=== PATIENT | female | born 1975 | race American Indian/Alaskan Native ===

== ENCOUNTER 2020-04-01 09:39 | Emergency (ER) | payer MEDICAID ==
[2020-04-01 09:45] VITALS: BP 122/70
--- NOTE | 2020-04-01 09:48 | Emergency Department Report ---
Blank Doc - Documentation Documentation: 44-year-old female that presents with right leg pain and swelling. Denies any trauma or injuries. 1- This initial assessment/diagnostic orders/clinical plan/ treatment(s) is/are subject to change based on pt's health status, clinical progression and re- assessment by fellow clinical providers in the ED. Further treatment and workup at subsequent clinical provers discretion. Patient/guardians urged not to elope from ED as their condition may be serious if not clinically assessed and managed. 2-Doppler ultrasound rule out DVT
[2020-04-01] MEDS ORDERED: ENOXAPARIN 80 MG/0.8 ML INJ SUB-Q ONE (11:58)
--- NOTE | 2020-04-01 12:17 | Vascular Lab Report ---
DUPLEX DOPPLER LOWER EXTREMITY VEINS, RIGHT INDICATION: right leg pain and swelling. TECHNIQUE: Duplex doppler imaging was performed through the veins of the right lower extremity using venous compression and other maneuvers. COMPARISON: No relevant prior imaging study available. FINDINGS: Right Common femoral vein: Positive. Right Superficial femoral vein: Positive. Right Popliteal vein: Positive. Right Calf veins: Positive. Additional findings: None.. IMPRESSION: Positive for acute occlusive DVT throughout the right lower extremity. NOAH Quezada was notified of these findings by the technologist at 1140 hours Signer Name: Andre Olivier Jr, MD Signed: 04/01/2020 12:12 PM Workstation Name: [id number]
[2020-04-01 12:28] LABS: Hematocrit 32.2 % (30.3-42.9); Hemoglobin 10.7 gm/dl (10.1-14.3); Mean Corpuscular HGB Conc 33 % (30-34); Mean Corpuscular Volume 90 fl (79-97); Red Blood Count 3.58 M/mm3 (3.65-5.03); Red Cell Distribution Width 13.4 % (13.2-15.2)
[2020-04-01 12:41] LABS: INR 1.03 (0.87-1.13); Partial Thromboplastin Time 27.9 Sec. (24.2-36.6)
[2020-04-01 12:55] LABS: Alanine Aminotransferase 17 units/L (7-56); Albumin 4.3 g/dL (3.9-5); BUN/Creatinine Ratio 13; Blood Urea Nitrogen 12 mg/dL (7-17); Calcium 9.4 mg/dL (8.4-10.2); Hemolysis Index 21
--- NOTE | 2020-04-01 13:32 | Emergency Department Report ---
ED General Adult HPI - General Chief complaint: Extremity Injury, Lower Stated complaint: RLE SWELLING Time Seen by Provider: 04/01/20 09:47 Source: patient Mode of arrival: Wheelchair Limitations: No Limitations - History of Present Illness Initial comments: This is a 44-year-old female nontoxic, well nourished in appearance, no acute signs of distress presents to the ED with c/o of right leg pain and swelling times several days. Patient denies any trauma or injuries. Patient denies taking control. Patient denies any numbness, tingling, fever, chills, nausea, vomiting, headache or stiff neck. Patient denies any drug allergies. -: days(s) Location: lower extremity Radiation: non-radiation Severity scale (0 -10): 8 Quality: aching Consistency: constant Improves with: none Worsens with: none Associated Symptoms: denies other symptoms. denies: confusion, chest pain, cough, diaphoresis, fever/chills, headaches, loss of appetite, malaise, nausea/vomiting, rash, seizure, shortness of breath, syncope, weakness - Related Data Previous Rx's Medication Instructions Recorded Last Taken Type Apixaban [Eliquis starter pack] 5 mg PO DAILY 30 Days #37 tab 04/01/20 Unknown Rx ED Review of Systems ROS: Stated complaint: RLE SWELLING Other details as noted in HPI Constitutional: denies: chills, fever Eyes: denies: eye pain, eye discharge, vision change ENT: denies: ear pain, throat pain Respiratory: denies: cough, shortness of breath, wheezing Cardiovascular: denies: chest pain, palpitations Endocrine: no symptoms reported Gastrointestinal: denies: abdominal pain, nausea, diarrhea Genitourinary: denies: urgency, dysuria, discharge Musculoskeletal: denies: back pain, joint swelling, arthralgia Skin: denies: rash, lesions Neurological: denies: headache, weakness, paresthesias Psychiatric: denies: anxiety, depression Hematological/Lymphatic: denies: easy bleeding, easy bruising ED Past Medical Hx - Past Medical History Hx of Cancer: Yes (CERVICAL) - Surgical History Past Surgical History?: No - Social History Smoking Status: Never Smoker Substance Use Type: None - Medications Home Medications: Home Medications Medication Instructions Recorded Confirmed Last Taken Type Apixaban [Eliquis starter pack] 5 mg PO DAILY 30 Days #37 tab 07/06/20 Unknown Rx ED Physical Exam - General Limitations: No Limitations General appearance: alert, in no apparent distress - Head Head exam: Present: atraumatic, normocephalic - Neck Neck exam: Present: normal inspection, full ROM. Absent: tenderness, men ingismus, lymphadenopathy - Respiratory Respiratory exam: Present: normal lung sounds bilaterally. Absent: respiratory distress, wheezes, rales, rhonchi, stridor, chest wall tenderness, accessory muscle use, decreased breath sounds, prolonged expiratory - Cardiovascular Cardiovascular Exam: Present: regular rate, normal rhythm, normal heart sounds. Absent: irregular rhythm, systolic murmur, diastolic murmur, rubs, gallop - Extremities Exam Extremities exam: Present: normal inspection, full ROM, tenderness, normal capillary refill. Absent: joint swelling - Expanded Lower Extremity Exam Right Hip exam: Present: normal inspection, full ROM. Absent: tenderness, swelling Upper Leg exam: Present: normal inspection, full ROM. Absent: tenderness, swelling Knee exam: Present: normal inspection, full ROM. Absent: tenderness, swelling Lower Leg exam: Present: normal inspection, full ROM, tenderness, swelling, erythema, Irasema's sign. Absent: abrasion, laceration, ecchymosis, deformity, crepidus, dislocation, palpable cord Ankle exam: Present: normal inspection, full ROM. Absent: tenderness, swelling Foot/Toe exam: Present: normal inspection, full ROM. Absent: tenderness, swelling Neuro vascular tendon exam: Present: no vascular compromise Gait: Positive: observed and normal - Back Exam Back exam: Present: normal inspection, full ROM. Absent: tenderness, CVA tenderness (R), CVA tenderness (L), muscle spasm, paraspinal tenderness, vertebral tenderness, rash noted - Neurological Exam Neurological exam: Present: alert, oriented X3, normal gait - Psychiatric Psychiatric exam: Present: normal affect, normal mood - Skin Skin exam: Present: warm, dry, intact, normal color. Absent: rash ED Course Vital Signs 04/01/20 09:44 Temperature 98.8 F Pulse Rate 111 H Respiratory 20 Rate Blood Pressure 122/70 O2 Sat by Pulse 100 Oximetry - Reevaluation(s) Reevaluation #1: 04/01/20 13:32 Patient is speaking in full sentences with no signs of distress noted. - Consultations Consultation #1: 04/01/20 13:32 Patient has been consulted with John Bales about patient history, physical exam, and labs and agrees to ED plan of care and discharge plan of care. ED Medical Decision Making - Lab Data Result diagrams: 04/01/20 11:49 04/01/20 11:49 Lab Results 04/01/20 04/01/20 04/01/20 Range/Units 11:49 11:49 11:49 RBC 3.58 L (3.65-5.03) M/mm3 Hgb 10.7 (10.1-14.3) gm/dl Hct 32.2 (30.3-42.9) % MCV 90 (79-97) fl MCH 30 (28-32) pg MCHC 33 (30-34) % RDW 13.4 (13.2-15.2) % Seg Neutrophils % Dive Superintendent PT 13.3 (12.2-14.9) Sec. INR 1.03 (0.87-1.13) APTT 27.9 (24.2-36.6) Sec. Sodium 137 (137-145) mmol/L Potassium 4.4 (3.6-5.0) mmol/L Chloride 98.0 (98-107) mmol/L Carbon Dioxide 23 (22-30) mmol/L Anion Gap 20 mmol/L BUN 12 (7-17) mg/dL Creatinine 0.9 (0.7-1.2) mg/dL Estimated GFR > 60 ml/min BUN/Creatinine Ratio 13 % Glucose 106 H (65-100) mg/dL Calcium 9.4 (8.4-10.2) mg/dL Total Bilirubin 0.40 (0.1-1.2) mg/dL AST 16 (5-40) units/L ALT 17 (7-56) units/L Alkaline Phosphatase 59 (35-129) units/L Total Protein 7.1 (6.3-8.2) g/dL Albumin 4.3 (3.9-5) g/dL Albumin/Globulin Ratio 1.5 % - Radiology Data Referring Physician: ROOSEVELT BENTON Patient Name: KRISTOFER ANNE Date of : 1975 Sex: Female Report Date: 2020-04-01 Report Status: Finalized [address] [place] [address] Vascular Lab Report Signed Patient: KRISTOFER ANNE MR#: [id number] : 1975 Acct:[id number] Age/Sex: 44 / F ADM Date: 04/01/20 Loc: ED Attending Dr: Ordering Physician: ROOSEVELT BENTON NP Date of Service: 04/01/20 Procedure(s): VL venous duplex LE RT Accession Number(s): [id number] cc: ROOSEVELT BENTON NP DUPLEX DOPPLER LOWER EXTREMITY VEINS, RIGHT INDICATION: right leg pain and swelling. TECHNIQUE: Duplex doppler imaging was performed through the veins of the right lower extremity using venous compression and other maneuvers. COMPARISON: No relevant prior imaging study available. FINDINGS: Right Common femoral vein: Positive. Right Superficial femoral vein: Positive. Right Popliteal vein: Positive. Right Calf veins: Positive. Additional findings: None.. IMPRESSION: Positive for acute occlusive DVT throughout the right lower extremity. NOAH Quezada was notified of these findings by the technologist at 1140 hours Signer Name: Andre Olivier Jr, MD Signed: 04/01/2020 12:12 PM Workstation Name: [id number] - Medical Decision Making 44-year-old female that presents with DVT. Patient is stable and was examined by me. Patient received Lovenox subcu injection in the ER. Patient also received Eliquis pamphlet that provides 30 days of medication. Patient was educated on blood thinners and things to avoid. In prescription under comments it was documented for pharmacist to provide 10 mg twice daily for 7 days followed by 5 mg twice daily. patient was instructed to follow-up with a primary care doctor in 3-5 days or if symptoms worsen and continue return to emergency room as soon as possible. At time of discharge, the patient does not seem toxic or ill in appearance. No acute signs of distress noted. Patient agrees to discharge treatment plan of care. No further questions noted by the patient. Critical care attestation.: If time is entered above; I have spent that time in minutes in the direct care of this critically ill patient, excluding procedure time. ED Disposition Clinical Impression: Right leg DVT Qualifiers: Affected thrombotic vein of extremity: unspecified vein of extremity Chronicity: acute Qualified Code(s): I82.401 - Acute embolism and thrombosis of unspecified deep veins of right lower extremity Disposition: DC-01 TO HOME OR SELFCARE Is pt being admited?: No Does the pt Need Aspirin: No Condition: Stable Instructions: Deep Venous Thrombosis (ED), Apixaban (By mouth) Additional Instructions: Follow-up with a primary care doctor in 3-5 days or if symptoms worsen and continue return to emergency room as soon as possible. Prescriptions: Apixaban [Eliquis starter pack] 5 mg PO DAILY 30 Days #37 tab Referrals: MICHOACANO PERKINS NP [Primary Care Provider] - 3-5 Days PRIMARY CARE, [Referring] - 3-5 Days ERIKA MIRANDA MD [Staff Physician] - 3-5 Days Forms: Work/School Release Form(ED)
[2020-04-01 13:58] LABS: Anisocytosis Few; Band Neutrophils # (Manual) 0.1 K/mm3; Basophils % (Manual) 0 % (0.0-1.8); Hypochromasia 1+; Macrocytosis Few; Platelet Estimate Consistent w Auto; Total Cells Counted 100
[2020-04-01 13:59] LABS: Platelet Count 74 K/mm3 (140-440)
== END 2020-04-01 13:47 | disposition home or self-care (01) ==
LOC: ED 09:39
DX: I82.4Z1 Acute embolism and thrombosis of unspecified deep veins of right distal lower extremity (principal); Z85.89 Personal history of malignant neoplasm of other organs and systems; Z79.899 Other long term (current) drug therapy
CPT/HCPCS: 36415; 80053; 85007; 85025; 85610; 85730; 93971; 96372; 99284; J1650

== ENCOUNTER 2020-10-04 08:36 | Outpatient (CLI) | payer MEDICAID ==
[2020-10-04 10:03] LABS: Blood Urea Nitrogen 9 mg/dL (7-17)
--- NOTE | 2020-10-04 11:51 | Cat Scan Report ---
CTA PELVIS INDICATION / CLINICAL INFORMATION: Vein compression, May Thurner syndrome. TECHNIQUE: Axial CT images were obtained through the abdomen and pelvis after after injection of 100 cc IV contr ast. 3 plane MIP / 3D reconstructions were produced. All CT scans at this location are performed usin g CT dose reduction for ALARA by means of automated exposure control. COMPARISON: None available. FINDINGS: CTA and CTV images were obtained although the CT the images are limited with only partial opacificati on of the venous structures. The visualized distal aorta, common iliac arteries, internal iliac arteries and external iliac arteri es are widely patent with no evidence for atherosclerotic disease, stenosis or aneurysm. The CTV images suggest perhaps mild compression of the left common iliac vein which is best demonstra mari on image 3, series 8. Otherwise the venous structures are unremarkable. No thrombosis. Mildly pro minent subcutaneous veins are noted in the anterior pelvic wall. The uterus, adnexa, bladder and visualized bowel loops in the pelvis are unremarkable. Normal appendi x. No free fluid, fluid collection, inflammatory changes or adenopathy. 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 Signer Name: Andre Olivier Jr, MD Signed: 10/04/2020 11:47 AM Workstation Name: [id number]
== END 2020-10-04 08:37 | disposition home or self-care (01) ==
LOC: CT 08:36
PROVIDERS: ATTEND Radiology Vascular & Interventional Radiology
DX: I87.1 Compression of vein (principal)
CPT/HCPCS: 36415; 72191; 82565; 84520; J1642; Q9967

== ENCOUNTER 2020-11-08 10:50 | Day surgery (SDC) | payer MEDICAID ==
[2020-11-08] MEDS ORDERED: SODIUM CHLORIDE 0.9% 1000 ML 1,000 ML IV SCH (11:30)
[2020-11-08 11:42] LABS: Basophils % (Auto) 0.4 % (0.0-1.8); Eosinophils # (Auto) 0.1 K/mm3 (0.0-0.4); Eosinophils % (Auto) 1.5 % (0.0-4.3); Hematocrit 32.9 % (30.3-42.9); Hemoglobin 11.1 gm/dl (10.1-14.3); Lymphocytes # (Auto) 0.8 K/mm3 (1.2-5.4); Lymphocytes % (Auto) 21.2 % (13.4-35.0); Mean Corpuscular HGB Conc 34 % (30-34); Mean Corpuscular Volume 90 fl (79-97); Monocytes # (Auto) 0.4 K/mm3 (0.0-0.8); Monocytes % (Auto) 10.7 % (0.0-7.3); Platelet Count 266 K/mm3 (140-440); Red Blood Count 3.64 M/mm3 (3.65-5.03)
[2020-11-08 11:54] LABS: BUN/Creatinine Ratio 9; Blood Urea Nitrogen 8 mg/dL (7-17); Calcium 9.1 mg/dL (8.4-10.2); Hemolysis Index 4
[2020-11-08 12:01] LABS: INR 1.05 (0.87-1.13); Partial Thromboplastin Time 32.5 Sec. (24.2-36.6)
[2020-11-08] MEDS ORDERED: HEPARIN 10,000 UNITS/10 ML VIAL ONE (12:42)
[2020-11-08] MEDS ORDERED: HEPARIN/NS 5000 UNIT/500ML 1,000 ML IR ONE (12:42)
--- NOTE | 2020-11-08 12:59 | Anesthesia Day of Surgery ---
Anesthesia Day of Surgery - Day of Surgery Patient Examined: Yes Patient H&P Reviewed: Yes Patient is NPO: Yes
--- NOTE | 2020-11-08 13:00 | Anesthesia Consultation ---
Anesthesia Consult and Med Hx Date of service: 11/08/20 - Airway Anesthetic Teeth Evaluation: Chipped, Caps ROM Head & Neck: Adequate Mental/Hyoid Distance: Adequate Mallampati Class: Class II Intubation Access Assessment: Good - Pre-Operative Health Status ASA Pre-Surgery Classification: ASA3 Proposed Anesthetic Plan: General (MAC; GA if needed), MAC - Pulmonary Hx Smoking: No Hx Asthma: Yes (as a child) Hx Respiratory Symptoms: Yes (Decreased activity from leg swelling/pain) - Cardiovascular System Hx Hypertension: No Hx Peripheral Vascular Disease: Yes - Central Nervous System Hx Psychiatric Problems: Yes - Endocrine Hx Renal Disease: No Hx Liver Disease: No Hx Non-Insulin Dependent Diabetes: No Hx Thyroid Disease: No - Hematic Hx Sickle Cell Disease: No - Other Systems Hx Cancer: Yes Hx Obesity: Yes
[2020-11-08] MEDS ORDERED: ceFAZolin/Water 2 GM/20 ML 2 GM/20 ML SYRINGE IV ONE (13:01)
[2020-11-08] MEDS: LIDOCAINE (2%) 20 MG/1 ML VIAL 20 ML MDV INFILTRATI ONE ×3 (13:15→13:45)
--- NOTE | 2020-11-08 14:43 | Short Stay Summary ---
Short Stay Documentation Date of service: 11/08/20 Narrative H&P: Previous DVT with chronic swelling in right leg with pain - History Principal diagnosis: Chronic DVT H&P: obtained from office Past Medical History: arthritis, cancer, DVT (Thrombectomy. IVC filter) - Allergies and Medications Current Medications: Allergies No Known Allergies Allergy (Verified 11/08/20 11:06) Home Medications Medication Instructions Recorded Confirmed Last Taken Type Apixaban [Eliquis starter pack] 5 mg PO BID 11/08/20 11/08/20 11/07/20 History 5 mg Active Medications Sodium Chloride (Nacl 0.9% 1000 Ml) 1,000 mls @ 42 mls/hr IV DIRECT ALTAGRACIA - Physical exam General appearance: no acute distress HEENT: Atraumatic, PERRLA Lungs: Clear to auscultation Breasts: deferred Heart: Regular rate, Normal S1, Normal S2 Gastrointestinal: normal Female Genitourinary: deferred Rectal Exam: deferred Extremities: abnormal (Diffuse swelling of right leg) Neurological: Normal gait, Normal speech, Sensation intact - Brief post op/procedure progress note Date of procedure: 11/08/20 Pre-op diagnosis: Right leg swelling. Chronic DVT. 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 Surgeon: KELVIN DIANA Estimated blood loss: minimal Pathology: none Condition: stable - Disposition Condition at discharge: Good Disposition: DC-01 TO HOME OR SELFCARE Short Stay Discharge Plan Follow up with: MICHOACANO PERKINS NP [Primary Care Provider] - 7 Days
[2020-11-08 16:33] VITALS: BP 128/81
--- NOTE | 2020-11-08 17:02 | Post Anesthesia Evaluation ---
- Post Anesthesia Evaluation Patient Participated: Yes Airway Patent: Yes Stable Respiratory Function: Yes Nausea/Vomiting: No Temp > 96.8F: Yes Pain Manageable: Yes Adequeate Hydration: Yes Anesthesia Complications: No Block Receding Appropriately: Not Applicable Patient on Ventilator: No
--- NOTE | 2020-11-15 07:34 | Operative Report ---
PROCEDURE: Right lower extremity venogram. INDICATION: Right leg swelling and pain, chronic right leg DVT. PHYSICIAN: Dr. Nance. ANESTHESIA: MAC anesthesia provided by anesthesia service. CONTRAST: 50 mL of Visipaque. PROCEDURE DETAILS: The patient has had previous inferior vena cava filter placement, also has a history of chronic DVT bilaterally. Had previous CT scan and ultrasound, which demonstrated possible occlusion of the right iliac vein. Following informed written consent, the patient was placed supine on the angiographic table and the right groin was prepped and draped in the usual sterile fashion. Using ultrasound guidance, the right common femoral vein was accessed using micropuncture access set. A 0.018 inch guidewire was advanced into the external iliac vein and a 5-Macanese transitional dilator was inserted. Contrast was injected, which demonstrated an occluded common femoral and external iliac vein. Multiple attempts were made to cross the area of occlusion with a nultiple wires however, this was unsuccessful. Therefore, the catheter and guidewire were removed. The right neck was then prepped and draped in the usual sterile fashion. Lidocaine was used for local anesthetic. Ultrasound guidance was utilized to access the right internal jugular vein. A micropuncture access set was used to access the right internal jugular vein and a 5-Macanese vascular sheath placed. A Glidewire with a Kumpe catheter was advanced into the right common iliac and proximal external iliac veins and contrast was injected using the digital subtraction angiography to evaluate the pelvic veins and portions of the lower extremity veins. Attempts were made with a Glidewire and a vertebral catheter to cross the area of occlusion; however, this was unsuccessful as well. At this time, the procedure was terminated and the catheter and guidewire were removed and the sheath removed, and manual compression applied until adequate hemostasis achieved. The patient tolerated the procedure well and was discharged following adequate recovery time. FINDINGS: There is evidence for chronic occlusion of the right common femoral vein as well as the external iliac vein. There is extensive collateralization present via the profunda femoral vein as well as the internal iliac vein with cross filling to the contralateral side with pelvic collaterals as well as an enlarged internal iliac vein, which is continuous into the common iliac vein. The inferior vena cava is widely patent. There is no evidence of thrombus present in the inferior vena cava or the common iliac vein. The inferior vena cava filter is in adequate position. There is also evidence for occlusion of the proximal femoral vein. IMPRESSION: 1. 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 2. Extensive collateralization via the profunda femoral vein as well as the internal iliac vein with cross pelvic collaterals as well. 3. No evidence for acute deep venous thrombosis. JOB# [id number] SKS/BREANNE LAM
== END 2020-11-08 16:55 | disposition home or self-care (01) ==
LOC: CATHLABREC 10:50
PROVIDERS: ATTEND Radiology Vascular & Interventional Radiology
DX: I82.523 Chronic embolism and thrombosis of iliac vein, bilateral (principal); J45.909 Unspecified asthma, uncomplicated; M19.90 Unspecified osteoarthritis, unspecified site; F32.9 Major depressive disorder, single episode, unspecified; E66.9 Obesity, unspecified; Z68.39 Body mass index [BMI] 39.0-39.9, adult; Z79.899 Other long term (current) drug therapy; Z85.41 Personal history of malignant neoplasm of cervix uteri; Z98.890 Other specified postprocedural states
CPT/HCPCS: 36415; 75820; 76937; 80048; 85025; 85610; 85730; C1769; J0690; J1644; J7030; Q9967

== ENCOUNTER 2021-04-07 16:50 | Inpatient (IN) | payer MEDICAID ==
[2021-04-07] MEDS ORDERED: ACETAMINOPHEN 500 MG TAB PO ONE ×2 (17:52→22:03)
--- NOTE | 2021-04-07 17:53 | Event Note ---
ED Screening Note Date of service: 04/07/21 Time: 17:50 ED Screening Note: 45-year-old female patient with history of right lower extremity DVT and stage II cervical cancer (in remission) presents to the emergency department with complaints of progressively worsening dyspnea for 1 week. Patient underwent outpatient CT of her chest, which showed PE vs. tumor thrombus, pericardial thickening, and pleural effusion. Her physician sent her to the emergency department for further evaluation and management. Patient was previously on Eliquis for her DVT. She was taken off of the Eliquis 4 days ago. Additionally, patient was recently off of her Eliquis for 6 days due to Port-A-Cath removal. Febrile and tachycardic in triage. Sepsis orders initiated. General: Awake, appropriately interactive, no acute distress. Neck: Supple. Full range of motion intact. Cardiovascular: Normal peripheral perfusion. Pulmonary: Dyspnea on exertion. Patient is speaking normally without use of accessory muscles. Skin: No apparent rashes or lesions. Neurological: No facial asymmetry. Speech is clear. Follows commands. Patient is alert and oriented. Musculoskeletal: Moves all four extremities spontaneously with normal range of motion. Psych: Cooperative. Appropriate mood and affect. Of note, patient brought CT images on a disk as well as dictation report from radiologist. I have greeted and performed a focused rapid initial assessment of this patient. A comprehensive ED assessment and evaluation of the patient, analysis of all test results, and completion of the medical decision-making process will be conducted by additional ED providers. This initial assessment/diagnostic orders/clinical plan/treatment(s) is/are subject to change based on patients health status, clinical progression and re-assessment. Further treatment and workup at subsequent clinical provider's discretion. Patient/guardian urged not to elope from the ED as their condition may be serious if not clinically assessed and managed.
[2021-04-07 18:09] LABS: Basophils % (Auto) 0.4 % (0.0-1.8); Eosinophils % (Auto) 0.5 % (0.0-4.3); Hemoglobin 10.7 gm/dl (10.1-14.3); Lymphocytes # (Auto) 0.7 K/mm3 (1.2-5.4); Lymphocytes % (Auto) 7.6 % (13.4-35.0); Mean Corpuscular HGB Conc 33 % (30-34); Mean Corpuscular Volume 89 fl (79-97); Monocytes # (Auto) 0.8 K/mm3 (0.0-0.8); Monocytes % (Auto) 8.4 % (0.0-7.3); Platelet Count 383 K/mm3 (140-440); Red Blood Count 3.61 M/mm3 (3.65-5.03); Red Cell Distribution Width 15.5 % (13.2-15.2)
[2021-04-07 18:23] LABS: INR 1.19 (0.87-1.13)
[2021-04-07 18:24] LABS: Partial Thromboplastin Time 28.8 Sec. (24.2-36.6)
[2021-04-07 19:30] LABS: Alanine Aminotransferase 150 units/L (7-56); BUN/Creatinine Ratio 9; Blood Urea Nitrogen 8 mg/dL (7-17); Calcium 9.9 mg/dL (8.4-10.2); Hemolysis Index 0
[2021-04-07] MEDS ORDERED: AZITHROMYCIN/NS 500 MG/250 ML 500 MG/250 ML BAG IV ONE (21:46)
[2021-04-07] MEDS ORDERED: cefTRIAXone/NS 2 GM/100 ML 2 GM/100 ML BAG IV ONE (21:46)
[2021-04-07] MEDS ORDERED: SODIUM CHLORIDE 0.9% 1000 ML IV SOLN IV ONE (21:46)
[2021-04-07] MEDS ORDERED: ACETAMINOPHEN 325 MG TAB PO ONE (22:00)
[2021-04-07] MEDS ORDERED: ACETAMINOPHEN 500 MG TAB ONE (22:03)
--- NOTE | 2021-04-07 22:03 | Emergency Department Report ---
ED Shortness of Breath HPI - General Chief Complaint: Dyspnea/Respdistress Stated Complaint: DIFF BREATHING Time Seen by Provider: 04/07/21 21:32 Source: patient Mode of arrival: Ambulatory Limitations: No Limitations - History of Present Illness Initial Comments: Patient is a 45-year-old F [place] female with past medical history of cervical cancer who is been in remission since July 2020 who is presenting with shortness of breath and right-sided chest pain. Patient states that she was on Eliquis secondary to a DVT and she had in the past while battling cancer. She was taken off of the Eliquis on March 26 because she had a Chemo-Port removed. She restarted the medication but then she had become ill and had some episodes where she was coughing up blood and she was restopped from taking the Eliquis 4 days ago. Patient states that on March 30 which is approximately 8 days ago she started having some pain in the right side of her neck and right chest. Patient was having chills as well with cough. Saw her primary care physician 2 days later on the had a chest x-ray which showed a possible right-sided middle upper lobe pneumonia. Patient started on a Z-David which the patient did not start until April 04. Since that time the patient is continued to have pleuritic chest pain and cough. She has had off-and-on fevers as well. She denies nausea vomiting diarrhea. Patient earlier today had a CT of the chest with contrast which showed abnormal appearance of the right hilum with multiple enlarged lymph nodes in intrapulmonary artery lower pulmonary vein low-density areas in the postcontrast study suspicious for thrombus versus tumor thrombus with opacification to the lateral segment of the right middle lobe in the superior segment of the right lower lobe with loculated pleural effusion present. Some mild anterior pericar dial thickening may be related to the same etiology. This was not a CTA and is not delineating whether there is a pulmonary embolus. - Related Data Home Medications Medication Instructions Recorded Confirmed Last Taken Apixaban [Eliquis starter pack] 5 mg PO BID 11/08/20 11/08/20 11/07/20 5 mg Allergies Allergy/AdvReac Type Severity Reaction Status Date / Time No Known Allergies Allergy Verified 11/08/20 11:06 ED Review of Systems ROS: Stated complaint: DIFF BREATHING Other details as noted in HPI Comment: All other systems reviewed and negative ED Past Medical Hx - Past Medical History Hx Hypertension: No Hx Liver Disease: No Hx Renal Disease: No Hx Sickle Cell Disease: No Hx Arthritis: Yes Hx Asthma: Yes (as a child) Hx HIV: No - Surgical History Past Surgical History?: No - Social History Smoking Status: Never Smoker - Medications Home Medications: Home Medications Medication Instructions Recorded Confirmed Last Taken Type Apixaban [Eliquis starter pack] 5 mg PO BID 11/08/20 11/08/20 11/07/20 History 5 mg ED Physical Exam - General Limitations: No Limitations General appearance: alert, in no apparent distress - Head Head exam: Present: atraumatic, normocephalic - Eye Eye exam: Present: normal appearance, PERRL, EOMI - ENT ENT exam: Present: mucous membranes moist - Neck Neck exam: Present: normal inspection - Respiratory Respiratory exam: Present: respiratory distress, rhonchi. Absent: normal lung sounds bilaterally, wheezes, rales - Cardiovascular Cardiovascular Exam: Present: normal rhythm, tachycardia. Absent: systolic murmur, diastolic murmur, rubs, gallop - GI/Abdominal GI/Abdominal exam: Present: soft, normal bowel sounds. Absent: distended, tenderness, guarding, rebound - Extremities Exam Extremities exam: Present: normal inspection - Back Exam Back exam: Present: normal inspection - Neurological Exam Neurological exam: Present: alert, oriented X3 - Psychiatric Psychiatric exam: Present: normal affect, normal mood - Skin Skin exam: Present: warm, dry, intact, normal color. Absent: rash ED Course Vital Signs 04/07/21 04/07/21 04/07/21 17:35 21:35 22:25 Temperature 100.8 F H 100.3 F H Pulse Rate 120 H 125 H Respiratory 20 25 H 18 Rate Blood Pressure 127/81 Blood Pressure 143/88 [Left] O2 Sat by Pulse 99 97 Oximetry 04/07/21 22:30 Temperature Pulse Rate Respiratory 18 Rate Blood Pressure Blood Pressure [Left] O2 Sat by Pulse Oximetry ED Medical Decision Making - Lab Data Result diagrams: 04/07/21 17:50 04/07/21 17:50 Lab Results 04/07/21 04/07/21 04/07/21 Range/Units 17:50 17:50 17:50 WBC 9.4 (4.5-11.0) K/mm3 RBC 3.61 L (3.65-5.03) M/mm3 Hgb 10.7 (10.1-14.3) gm/dl Hct 32.0 (30.3-42.9) % MCV 89 (79-97) fl MCH 30 (28-32) pg MCHC 33 (30-34) % RDW 15.5 H (13.2-15.2) % Plt Count 383 (140-440) K/mm3 Lymph % (Auto) 7.6 L (13.4-35.0) % [place] % (Auto) 8.4 H (0.0-7.3) % Eos % (Auto) 0.5 (0.0-4.3) % Baso % (Auto) 0.4 (0.0-1.8) % Lymph # (Auto) 0.7 L (1.2-5.4) K/mm3 [place] # (Auto) 0.8 (0.0-0.8) K/mm3 Eos # (Auto) 0.0 (0.0-0.4) K/mm3 Baso # (Auto) 0.0 (0.0-0.1) K/mm3 Seg Neutrophils % 83.1 H (40.0-70.0) % Seg Neutrophils # 7.8 H (1.8-7.7) K/mm3 PT 15.6 H (12.2-14.9) Sec. INR 1.19 H (0.87-1.13) APTT 28.8 (24.2-36.6) Sec. Sodium 137 (137-145) mmol/L Potassium 3.9 (3.6-5.0) mmol/L Chloride 97.3 L (98-107) mmol/L Carbon Dioxide 27 (22-30) mmol/L Anion Gap 17 mmol/L BUN 8 (7-17) mg/dL Creatinine 0.9 (0.6-1.2) mg/dL Estimated GFR > 60 ml/min BUN/Creatinine Ratio 9 % Glucose 116 H (65-100) mg/dL Lactic Acid (0.7-2.0) mmol/L Calcium 9.9 (8.4-10.2) mg/dL Total Bilirubin 0.80 (0.1-1.2) mg/dL AST 108 H (5-40) units/L ALT 150 H (7-56) units/L Alkaline Phosphatase 240 H (35-129) units/L Troponin T < 0.010 (0.00-0.029) ng/mL NT-Pro-B Natriuret Pep 21.49 (0-450) pg/mL Total Protein 8.8 H (6.3-8.2) g/dL Albumin 4.0 (3.9-5) g/dL Albumin/Globulin Ratio 0.8 % 04/07/21 Range/Units 17:50 WBC (4.5-11.0) K/mm3 RBC (3.65-5.03) M/mm3 Hgb (10.1-14.3) gm/dl Hct (30.3-42.9) % MCV (79-97) fl MCH (28-32) pg MCHC (30-34) % RDW (13.2-15.2) % Plt Count (140-440) K/mm3 Lymph % (Auto) (13.4-35.0) % [place] % (Auto) (0.0-7.3) % Eos % (Auto) (0.0-4.3) % Baso % (Auto) (0.0-1.8) % Lymph # (Auto) (1.2-5.4) K/mm3 [place] # (Auto) (0.0-0.8) K/mm3 Eos # (Auto) (0.0-0.4) K/mm3 Baso # (Auto) (0.0-0.1) K/mm3 Seg Neutrophils % (40.0-70.0) % Seg Neutrophils # (1.8-7.7) K/mm3 PT (12.2-14.9) Sec. INR (0.87-1.13) APTT (24.2-36.6) Sec. Sodium (137-145) mmol/L Potassium (3.6-5.0) mmol/L Chloride (98-107) mmol/L Carbon Dioxide (22-30) mmol/L Anion Gap mmol/L BUN (7-17) mg/dL Creatinine (0.6-1.2) mg/dL Estimated GFR ml/min BUN/Creatinine Ratio % Glucose (65-100) mg/dL Lactic Acid 0.70 (0.7-2.0) mmol/L Calcium (8.4-10.2) mg/dL Total Bilirubin (0.1-1.2) mg/dL AST (5-40) units/L ALT (7-56) units/L Alkaline Phosphatase (35-129) units/L Troponin T (0.00-0.029) ng/mL NT-Pro-B Natriuret Pep (0-450) pg/mL Total Protein (6.3-8.2) g/dL Albumin (3.9-5) g/dL Albumin/Globulin Ratio % - EKG Data -: EKG Interpreted by Nd EKG shows normal: sinus rhythm, axis, intervals, QRS complexes, ST-T waves Rate: tachycardia (112) - EKG Data 04/07/21 22:45 2240, sinus tachycardia - Radiology Data [facility] [address] [id number] Cat Scan Report Signed Patient: KRISTOFER ANNE MR#: [id number] : 1975 Acct:[id number] Age/Sex: 45 / F ADM Date: 04/07/21 Loc: ED Attending Dr: Ordering Physician: MARLA SIMS MD Date of Service: 04/07/21 Procedure(s): CT angio chest Accession Number(s): [id number] cc: MARLA SIMS MD CTA CHEST WITH CONTRAST INDICATION / CLINICAL INFORMATION: Dyspnea x 1 week, pain with breathing, Hx of a DVT.. TECHNIQUE: Axial CT images were obtained through the chest after injection of IV contrast. 3 plane MIP and/or 3D reconstructions were produced. All CT scans at this location are performed using CT dose reduction for ALARA by means of automated exposure control. COMPARISON: None available. FINDINGS: PULMONARY ARTERIES: Complete filling defect of the segmental and subsegmental pulmonary arteries of the right middle lobe and right lower lobe. Clot extends to the distal right main pulmonary artery. There is no saddle embolus. No discrete filling defects seen within the pulmonary arteries of the right upper lobe or the left lung. THORACIC AORTA: No significant abnormality. HEART: No significant abnormality. No evidence of right heart strain. RB/LV ratio is within normal limits. ADENOPATHY: No significant adenopathy. LUNGS/PLEURA: Small right pleural effusion with dense airspace consolidation peripherally within the right lower lobe, with consolidation in the right middle lobe. There is lingular and left lower lobe volume loss. Lungs otherwise clear. No pneumothorax. ADDITIONAL FINDINGS: None. UPPER ABDOMEN: Focal area of hyperenhancement within the right kidney may reflect artifact or focal perfusion abnormality. No acute abnormality. SKELETAL STRUCTURES: No significant osseous abnormality. IMPRESSION: 1. Acute occlusive pulmonary embolus of the right lower lobe with involvement of the segmental right middle lobe pulmonary arteries. Embolus extends to the distal right main pulmonary artery. No discrete pulmonary emboli seen in the right upper lobe or left lung. 2. Small right pleural effusion with dense airspace consolidation within the right lower lobe, less so within the right middle lobe, compatible with pulmonary infarct. 3. No evidence of right heart strain. 4. Other incidental findings, as above. CRITICAL RESULT: Time of Discovery (PERSONAL SHOPPER/CDT): 04/07/2021 at 9:50 PM Time of Communication (PERSONAL SHOPPER/CDT): 04/07/2021 at 9:52 PM Licensed Practitioner Receiving Report: Dr. Sims Read-Back Performed: Yes. - Medical Decision Making Patient is a 45-year-old F [place] female who is presenting with right-sided chest pain. CTA today shows an extensive pulmonary embolus to the right lower lobe and right middle lobe with some right lower lobe infarct. Patient was given medication for fever and pain control. Started on heparin drip and she will be admitted to the hospitalist service. Critical Care Time: Yes (40) Critical care attestation.: If time is entered above; I have spent that time in minutes in the direct care of this critically ill patient, excluding procedure time. ED Disposition Clinical Impression: Pulmonary embolism, Pulmonary infarct Disposition: OP ADMIT IP TO THIS HOSP Is pt being admited?: Yes Does the pt Need Aspirin: No Condition: Stable Time of Disposition: 23:15
[2021-04-07] MEDS ORDERED: HEPARIN 10,000 UNITS/10 ML VIAL IV PRN (22:51)
[2021-04-07] MEDS ORDERED: HEPARIN 10,000 UNITS/10 ML VIAL IV ONE ×2 (22:51)
--- NOTE | 2021-04-07 22:57 | Cat Scan Report ---
CTA CHEST WITH CONTRAST INDICATION / CLINICAL INFORMATION: Dyspnea x 1 week, pain with breathing, Hx of a DVT.. TECHNIQUE: Axial CT images were obtained through the chest after injection of IV contrast. 3 plane VT P and/or 3D reconstructions were produced. All CT scans at this location are performed using CT dose reduction for ALARA by means of automated exposure control. COMPARISON: None available. FINDINGS: PULMONARY ARTERIES: Complete filling defect of the segmental and subsegmental pulmonary arteries of t he right middle lobe and right lower lobe. Clot extends to the distal right main pulmonary artery. Th ere is no saddle embolus. No discrete filling defects seen within the pulmonary arteries of the right upper lobe or the left lung. THORACIC AORTA: No significant abnormality. HEART: No significant abnormality. No evidence of right heart strain. RB/LV ratio is within normal li mits. ADENOPATHY: No significant adenopathy. LUNGS/PLEURA: Small right pleural effusion with dense airspace consolidation peripherally within the right lower lobe, with consolidation in the right middle lobe. There is lingular and left lower lobe volume loss. Lungs otherwise clear. No pneumothorax. ADDITIONAL FINDINGS: None. UPPER ABDOMEN: Focal area of hyperenhancement within the right kidney may reflect artifact or focal p erfusion abnormality. No acute abnormality. SKELETAL STRUCTURES: No significant osseous abnormality. IMPRESSION: 1. Acute occlusive pulmonary embolus of the right lower lobe with involvement of the segmental right middle lobe pulmonary arteries. Embolus extends to the distal right main pulmonary artery. No discret e pulmonary emboli seen in the right upper lobe or left lung. 2. Small right pleural effusion with dense airspace consolidation within the right lower lobe, less s o within the right middle lobe, compatible with pulmonary infarct. 3. No evidence of right heart strain. 4. Other incidental findings, as above. CRITICAL RESULT: Time of Discovery (ELDER COUNSELOR/CDT): 04/07/2021 at 9:50 PM Time of Communication (ELDER COUNSELOR/CDT): 04/07/2021 at 9:52 PM Licensed Practitioner Receiving Report: Dr. Sims Read-Back Performed: Yes. Signer Name: Jackson Ivey MD Signed: 04/07/2021 10:53 PM Workstation Name: [id number]
[2021-04-07] MEDS ORDERED: ONDANSETRON 4 MG/2 ML INJ IV PRN (23:45)
[2021-04-07] MEDS ORDERED: ALBUTEROL 2.5 MG/3 ML NEBU IH PRN (23:45)
[2021-04-07 23:49] LABS: Hematocrit 27.8 % (30.3-42.9); Hemoglobin 9.3 gm/dl (10.1-14.3)
--- NOTE | 2021-04-07 23:53 | History and Physical Report ---
History of Present Illness Date of examination: 04/07/21 Date of admission: 04/07/21 23:16 Chief complaint: Shortness of breath Chest pain Respiratory distress History of present illness: 45-year-old female with past medical history of cervical cancer and right leg DVT was brought to the emergency room because of shortness of breath and right- sided chest pain. Patient states that she was on Eliquis secondary to a DVT and she had in the past while battling cancer. She was taken off of the Eliquis on March 26 because she had a Chemo-Port removed. She restarted the medication but then she had become ill and had some episodes where she was coughing up blood an d she was restopped from taking the Eliquis 4 days ago. Patient states that on March 30 which is approximately 8 days ago she started having some pain in the right side of her neck and right chest. Patient was having chills as well with cough. Saw her primary care physician 2 days later on the sixth had a chest x- ray which showed a possible right-sided middle upper lobe pneumonia. Patient started on a Z-David which the patient did not start until April 04. Since that time the patient is continued to have pleuritic chest pain and cough. She has had off-and-on fevers as well. She denies nausea vomiting diarrhea. Patient earlier today had a CT of the chest with contrast which showed abnormal appearance of the right hilum with multiple enlarged lymph nodes in intrapulmonary artery lower pulmonary vein low-density areas in the postcontrast study suspicious for thrombus versus tumor thrombus with opacification to the lateral segment of the right middle lobe in the superior segment of the right lower lobe with loculated pleural effusion present. Some mild anterior pericardial thickening may be related to the same etiology. This was not a CTA and is not delineating whether there is a pulmonary embolus. In the emergency room patient has a CTA which shows patient has pulmonary embolism. We are going to admit the patient I put the patient on heparin drip Past History Past Medical History: arthritis, DVT (Cervical cancer in remission) Medications and Allergies Allergies Allergy/AdvReac Type Severity Reaction Status Date / Time No Known Allergies Allergy Verified 11/08/20 11:06 Home Medications Medication Instructions Recorded Confirmed Last Taken Type Apixaban [Eliquis starter pack] 5 mg PO BID 11/08/20 11/08/20 11/07/20 History 5 mg Active Meds: Active Medications Heparin Sodium (Porcine) (Heparin 10,000 Units/10 Ml Vial) 3,900 unit 40 unit/kg (3900 unit) IV Q6H PRN PRN Reason: Anti-Xa Assay < 0.1 units/ml Review of Systems Cardiovascular: chest pain, shortness of breath, dyspnea on exertion Respiratory: shortness of breath, dyspnea on exertion Exam - Constitutional Vitals: Temp Pulse Resp BP Pulse Ox 100.3 F H 108 H 15 141/60 100 04/07/21 21:35 04/07/21 23:16 04/07/21 23:16 04/07/21 23:16 04/07/21 23:16 General appearance: Present: no acute distress, well-nourished - EENT Eyes: Present: PERRL ENT: hearing intact, clear oral mucosa - Neck Neck: Present: supple, normal ROM - Respiratory Respiratory effort: normal Respiratory: bilateral: diminished - Cardiovascular Heart Sounds: Present: S1 & S2. Absent: rub, click - Extremities Extremities: pulses symmetrical, No edema Peripheral Pulses: within normal limits - Abdominal General gastrointestinal: Present: soft, non-tender, non-distended, normal bowel sounds Female genitourinary: Present: normal - Integumentary Integumentary: Present: clear, warm, dry - Musculoskeletal Musculoskeletal: gait normal, strength equal bilaterally - Psychiatric Psychiatric: appropriate mood/affect, intact judgment & insight - Neurologic Neurologic: CNII-XII intact, moves all extremities HEART Score - HEART Score Troponin: Troponin T < 0.010 ng/mL (0.00-0.029) 04/07/21 17:50 Results - Labs CBC & Chem 7: 04/07/21 23:27 04/07/21 17:50 Labs: Laboratory Last Values WBC 9.4 K/mm3 (4.5-11.0) 04/07/21 17:50 RBC 3.61 M/mm3 (3.65-5.03) L 04/07/21 17:50 Hgb 10.7 gm/dl (10.1-14.3) 04/07/21 17:50 Hct 32.0 % (30.3-42.9) 04/07/21 17:50 MCV 89 fl (79-97) 04/07/21 17:50 MCH 30 pg (28-32) 04/07/21 17:50 MCHC 33 % (30-34) 04/07/21 17:50 RDW 15.5 % (13.2-15.2) H 04/07/21 17:50 Plt Count 383 K/mm3 (140-440) 04/07/21 17:50 Lymph % (Auto) 7.6 % (13.4-35.0) L 04/07/21 17:50 [place] % (Auto) 8.4 % (0.0-7.3) H 04/07/21 17:50 Eos % (Auto) 0.5 % (0.0-4.3) 04/07/21 17:50 Baso % (Auto) 0.4 % (0.0-1.8) 04/07/21 17:50 Lymph # (Auto) 0.7 K/mm3 (1.2-5.4) L 04/07/21 17:50 [place] # (Auto) 0.8 K/mm3 (0.0-0.8) 04/07/21 17:50 Eos # (Auto) 0.0 K/mm3 (0.0-0.4) 04/07/21 17:50 Baso # (Auto) 0.0 K/mm3 (0.0-0.1) 04/07/21 17:50 Seg Neutrophils % 83.1 % (40.0-70.0) H 04/07/21 17:50 Seg Neutrophils # 7.8 K/mm3 (1.8-7.7) H 04/07/21 17:50 PT 15.6 Sec. (12.2-14.9) H 04/07/21 17:50 INR 1.19 (0.87-1.13) H 04/07/21 17:50 APTT 28.8 Sec. (24.2-36.6) 04/07/21 17:50 Sodium 137 mmol/L (137-145) 04/07/21 17:50 Potassium 3.9 mmol/L (3.6-5.0) 04/07/21 17:50 Chloride 97.3 mmol/L (98-107) L 04/07/21 17:50 Carbon Dioxide 27 mmol/L (22-30) 04/07/21 17:50 Anion Gap 17 mmol/L 04/07/21 17:50 BUN 8 mg/dL (7-17) 04/07/21 17:50 Creatinine 0.9 mg/dL (0.6-1.2) 04/07/21 17:50 Estimated GFR > 60 ml/min 04/07/21 17:50 BUN/Creatinine Ratio 9 % 04/07/21 17:50 Glucose 116 mg/dL (65-100) H 04/07/21 17:50 Lactic Acid 0.70 mmol/L (0.7-2.0) 04/07/21 17:50 Calcium 9.9 mg/dL (8.4-10.2) 04/07/21 17:50 Total Bilirubin 0.80 mg/dL (0.1-1.2) 04/07/21 17:50 AST 108 units/L (5-40) H 04/07/21 17:50 ALT 150 units/L (7-56) H 04/07/21 17:50 Alkaline Phosphatase 240 units/L (35-129) H 04/07/21 17:50 Troponin T < 0.010 ng/mL (0.00-0.029) 04/07/21 17:50 NT-Pro-B Natriuret Pep 21.49 pg/mL (0-450) 04/07/21 17:50 Total Protein 8.8 g/dL (6.3-8.2) H 04/07/21 17:50 Albumin 4.0 g/dL (3.9-5) 04/07/21 17:50 Albumin/Globulin Ratio 0.8 % 04/07/21 17:50 Microbiology: Microbiology 04/07/21 17:50 Peripheral/Venous Blood Culture - Preliminary Culture in Progress 04/07/21 18:08 Peripheral/Venous Blood Culture - Preliminary Culture in Progress - Imaging and Cardiology CT scan - chest: report reviewed Assessment and Plan VTE prophylaxis?: Chemical Plan of care discussed with patient/family: Yes - Patient Problems (1) Pulmonary embolism Current Visit: Yes Status: Acute Plan to address problem: Admit the patient to the medical telemetry. Oxygen via nasal catheter per minute DuoNeb by nebulizer every 4 hours. Albuterol via nebulizer every 4 hours as needed. Heparin drip as per protocol. Echocardiogram. Will restart the Eliquis in the morning (2) Pulmonary infarct Current Visit: Yes Status: Acute Plan to address problem: Oxygen via nasal catheter per minute DuoNeb by nebulizer every 4 hours. Albuterol via nebulizer every 4 hours as needed. Heparin drip as per protocol. Echocardiogram. Will restart the Eliquis in the morning. If needed will consult vascular surgeon in the morning (3) Cervical cancer Current Visit: No Status: Acute Plan to address problem: Continue home medication. Outpatient follow-up with oncology (4) Deep vein thrombosis (DVT) of iliac vein of right lower extremity Current Visit: No Status: Acute Plan to address problem: Oxygen via nasal catheter per minute DuoNeb by nebulizer every 4 hours. Albuterol via nebulizer every 4 hours as needed. Heparin drip as per protocol. Echocardiogram. Will restart the Eliquis in the morning (5) Arthritis Current Visit: Yes Status: Acute Plan to address problem: Stable. Tylenol 650 mg p.o. every 6 hours as needed. Morphine 2 mg IV every 4 hours as needed (6) Full code status Current Visit: Yes Status: Acute Plan to address problem: Heparin drip for DVT prophylaxis. Pepcid 20 mg p.o. twice daily for GI prophylaxis. Patient is a full code
[2021-04-07] MEDS ORDERED: HEPARIN/ 0.45% NACL DRIP 25,000 UNIT/500 ML BAG ONE (23:54)
[2021-04-07 23:59] LABS: INR 1.24 (0.87-1.13)
[2021-04-08] LABS: Partial Thromboplastin Time 35.8 Sec. (24.2-36.6)
[2021-04-08] MEDS: HEPARIN/ 0.45% NACL DRIP 25,000 UNIT/500 ML BAG IV SCH ×2 (00:15→16:48)
[2021-04-08] MEDS ORDERED: HEPARIN/ 0.45% NACL DRIP 25,000 UNIT/500 ML BAG IV SCH (01:00)
[2021-04-08] MEDS: IPRATROPIUM/ALBUTEROL SULFATE 3 ML AMPUL.NEB IH SCH ×4 (01:20→20:08)
[2021-04-08] MEDS: MORPHINE 2 MG/1 ML INJ IV PRN ×4 (02:32→20:24)
[2021-04-08] MEDS: ACETAMINOPHEN 325 MG TAB PO PRN ×2 (06:09→20:23)
[2021-04-08 06:57] LABS: Basophils # (Auto) 0.1 K/mm3 (0.0-0.1); Basophils % (Auto) 0.7 % (0.0-1.8); Eosinophils # (Auto) 0.1 K/mm3 (0.0-0.4); Eosinophils % (Auto) 0.8 % (0.0-4.3); Hematocrit 28.1 % (30.3-42.9); Hemoglobin 9.6 gm/dl (10.1-14.3); Lymphocytes # (Auto) 0.9 K/mm3 (1.2-5.4); Lymphocytes % (Auto) 8.8 % (13.4-35.0); Mean Corpuscular HGB Conc 34 % (30-34); Mean Corpuscular Volume 86 fl (79-97); Monocytes # (Auto) 0.6 K/mm3 (0.0-0.8); Monocytes % (Auto) 6.2 % (0.0-7.3); Platelet Count 342 K/mm3 (140-440); Red Blood Count 3.27 M/mm3 (3.65-5.03); Red Cell Distribution Width 15.7 % (13.2-15.2)
[2021-04-08 07:02] LABS: BUN/Creatinine Ratio 8; Blood Urea Nitrogen 6 mg/dL (7-17); Calcium 9.2 mg/dL (8.4-10.2); Hemolysis Index 1
[2021-04-08] MEDS: FAMOTIDINE 20 MG TAB PO SCH ×2 (09:25→21:18)
--- NOTE | 2021-04-08 10:55 | Electrocardiograph Report ---
[facility] Test Date: 2021-04-07 Test Time: 22:35:59 Pat Name: KRISTOFER ANNE Department: Room: A462 1 Gender: F Methods Time Analyst: CINTHIA : 1975 Requested By: NATHAN MEDINA Order Number: [id number] Reading MD: Konstantin Ruby Measurements Intervals [place] Rate: 112 P: 49 SD: 153 QRS: 41 QRSD: 76 T: 48 QT: 315 QTc: 432 Interpretive Statements Sinus tachycardia No previous ECG available for comparison Electronically Signed On 04-08-2021 10:55:15 EDT by Konstantin Ruby
--- NOTE | 2021-04-08 14:41 | Progress Note ---
Assessment and Plan --Right middle lobe Pulmonary embolism Oxygen via nasal catheter per minute DuoNeb by nebulizer every 4 hours. Albuterol via nebulizer every 4 hours as needed. Heparin drip as per protocol. Ordered Echocardiogram. consult heamatology -- Pulmonary infarct Oxygen via nasal catheter per minute DuoNeb by nebulizer every 4 hours. Albuterol via nebulizer every 4 hours as needed. consult pulmonary -- h/o Cervical cancer Outpatient follow-up with oncology -- h/o Deep vein thrombosis (DVT) of iliac vein of right lower extremity patient was taking eliquis at home but recently discontinued for hemoptysis -- Arthritis Stable. Tylenol 650 mg p.o. every 6 hours as needed. Morphine 2 mg IV every 4 hours as needed --Morbid obesity, diet and exercise recommendation when clinically more stable -- Full code status --Heparin drip for DVT prophylaxis. Pepcid 20 mg p.o. twice daily for GI prophylaxis. Daily clinical course: 04/08/21: cont heparin drip, Pt with h/o GI bleed will consult heam and pulmonary for AC recommendation Subjective Date of service: 04/08/21 Interval history: Patient seen and examined. Medical records and medication list reviewed. No acute event overnight noted by the RN. Patient continued to complains of pleuritic chest pain and difficulty breathing. Patient is tolerating diet. Discussed plan of care at bedside with patient. Objective - Exam Narrative Exam: GENERAL: well-developed and well-nourished lying on bed appeared to be in no discomfort. HEENT: Normocephalic. Atraumatic. No conjunctival congestion or icterus. Patient has moist mucous membranes. NECK: Supple. Trachea midline. CHEST/LUNGS: Clear to auscultated bilaterally, breathing nonlabored. No wheezes crackles or rhonchi. HEART/CARDIOVASCULAR: Regular in rate and rhythm. S1 and S2 positive. ABDOMEN: Abdomen is soft, nontender. Patient has normal bowel sounds. SKIN: There is no rash. Warm and dry. NEURO: No focal motor deficit. Follows command. MUSCULOSKELETAL: No joint effusion or tenderness. EXTRIMITY: No edema, no cyanosis or clubbing. PSYCH: Cooperative. - Constitutional Vitals: Vital Signs - 12hr 04/08/21 04/08/21 04/08/21 04:34 07:12 07:23 Temperature 100.3 F H 99.6 F Pulse Rate 107 H 103 H Pulse Rate [ 80 Posterior Bilateral Lower Lobe] Respiratory 18 19 Rate Respiratory 16 Rate [Posterior Bilateral Lower Lobe] Blood Pressure 113/75 118/61 O2 Sat by Pulse 100 95 Oximetry 04/08/21 11:35 Temperature 99.5 F Pulse Rate 96 H Pulse Rate [ Posterior Bilateral Lower Lobe] Respiratory 19 Rate Respiratory Rate [Posterior Bilateral Lower Lobe] Blood Pressure 128/79 O2 Sat by Pulse 100 Oximetry - Labs CBC & Chem 7: 04/09/21 13:59 04/09/21 13:59 Labs: Abnormal lab results 04/07/21 04/07/21 04/07/21 Range/Units 17:50 17:50 17:50 RBC 3.61 L (3.65-5.03) M/mm3 Hgb (10.1-14.3) gm/dl Hct (30.3-42.9) % RDW 15.5 H (13.2-15.2) % Lymph % (Auto) 7.6 L (13.4-35.0) % [place] % (Auto) 8.4 H (0.0-7.3) % Lymph # (Auto) 0.7 L (1.2-5.4) K/mm3 Seg Neutrophils % 83.1 H (40.0-70.0) % Seg Neutrophils # 7.8 H (1.8-7.7) K/mm3 PT 15.6 H (12.2-14.9) Sec. INR 1.19 H (0.87-1.13) Chloride 97.3 L (98-107) mmol/L BUN (7-17) mg/dL Glucose 116 H (65-100) mg/dL AST 108 H (5-40) units/L ALT 150 H (7-56) units/L Alkaline Phosphatase 240 H (35-129) units/L Total Protein 8.8 H (6.3-8.2) g/dL 04/07/21 04/07/21 04/08/21 Range/Units 23:27 23:27 06:40 RBC 3.27 L (3.65-5.03) M/mm3 Hgb 9.3 L 9.6 L (10.1-14.3) gm/dl Hct 27.8 L 28.1 L (30.3-42.9) % RDW 15.7 H (13.2-15.2) % Lymph % (Auto) 8.8 L (13.4-35.0) % [place] % (Auto) (0.0-7.3) % Lymph # (Auto) 0.9 L (1.2-5.4) K/mm3 Seg Neutrophils % 83.5 H (40.0-70.0) % Seg Neutrophils # 8.7 H (1.8-7.7) K/mm3 PT 16.1 H (12.2-14.9) Sec. INR 1.24 H (0.87-1.13) Chloride (98-107) mmol/L BUN (7-17) mg/dL Glucose (65-100) mg/dL AST (5-40) units/L ALT (7-56) units/L Alkaline Phosphatase (35-129) units/L Total Protein (6.3-8.2) g/dL 04/08/21 Range/Units 06:40 RBC (3.65-5.03) M/mm3 Hgb (10.1-14.3) gm/dl Hct (30.3-42.9) % RDW (13.2-15.2) % Lymph % (Auto) (13.4-35.0) % [place] % (Auto) (0.0-7.3) % Lymph # (Auto) (1.2-5.4) K/mm3 Seg Neutrophils % (40.0-70.0) % Seg Neutrophils # (1.8-7.7) K/mm3 PT (12.2-14.9) Sec. INR (0.87-1.13) Chloride (98-107) mmol/L BUN 6 L (7-17) mg/dL Glucose 132 H (65-100) mg/dL AST (5-40) units/L ALT (7-56) units/L Alkaline Phosphatase (35-129) units/L Total Protein (6.3-8.2) g/dL HEART Score - HEART Score Troponin: Troponin T < 0.010 ng/mL (0.00-0.029) 04/07/21 17:50
[2021-04-09] MEDS: IPRATROPIUM/ALBUTEROL SULFATE 3 ML AMPUL.NEB IH SCH ×4 (03:01→20:37)
[2021-04-09] MEDS: MORPHINE 2 MG/1 ML INJ IV PRN ×2 (03:20→10:13)
[2021-04-09] MEDS: ACETAMINOPHEN 325 MG TAB PO PRN ×2 (03:33→12:36)
[2021-04-09 05:50] LABS: Basophils % (Auto) 0.4 % (0.0-1.8); Eosinophils # (Auto) 0.1 K/mm3 (0.0-0.4); Eosinophils % (Auto) 0.5 % (0.0-4.3); Lymphocytes % (Auto) 8.9 % (13.4-35.0); Mean Corpuscular HGB Conc 35 % (30-34); Mean Corpuscular Volume 87 fl (79-97); Monocytes # (Auto) 0.8 K/mm3 (0.0-0.8); Monocytes % (Auto) 7.1 % (0.0-7.3); Platelet Count 339 K/mm3 (140-440); Red Blood Count 2.98 M/mm3 (3.65-5.03); Red Cell Distribution Width 15.3 % (13.2-15.2)
[2021-04-09 07:59] LABS: BUN/Creatinine Ratio 6; Blood Urea Nitrogen 5 mg/dL (7-17); Calcium 9.3 mg/dL (8.4-10.2); Hemolysis Index 0
[2021-04-09] MEDS: FAMOTIDINE 20 MG TAB PO SCH ×2 (10:13→22:36)
[2021-04-09] MEDS: HEPARIN/ 0.45% NACL DRIP 25,000 UNIT/500 ML BAG IV SCH (10:16)
--- NOTE | 2021-04-09 11:07 | Hem/Onc Consultation ---
History of Present Illness - Reason for Consult Consult date: 04/08/21 - History of Present Illness History Of Present Illness: HEME consult for PE, and clotting requested by Dr. Dudley Televisit by [facility] [id number] Dx: Pulmonary Embolism 45yo AA woman with PMH of cervical ca and right leg DVT, followed by Dr. Giles Diagnosed with cervical ca January 2020 with port placement and chemotherapy treatment, now in remission Pt was also started on Eliquis secondary to DVT in 2019 Eliquis was stopped on 03/22/2021 for port removal and resumed 04/01/2021. Pt states on 03/30/2021 she started having pain from the right side of her neck down her ribs with some associated SOB Admitted to [facility] 04/08/2021 and found to have PE --> IV heparin, steroids PMH: 2 miscarriages locally advanced cervical cancer as above FH: Mom with bilateral PE Sister with complicated bilateral DVTs, EXAM: NAD overweight woman DATA reviewed below IMPRESSION: presumed clotting tendency, h/o DVT and now with PE Clotting due to pmh of cervical ca and family history of clotting tendency r/o sickle trait or APLS chest pain likely due to pulm infarction elevated liver enzymes, cause unknown mild anemia with mixed iron defic and anemia of chronic inflammation RECOMMEND: IV heparin for now --> change back to Eliquis at discharge and f/u with Oncologist Dr. Giles Steroid pulse for pleuritic chest pain labs to include Hgb electrophoresis and cardiolipin ab IV iron infusion Laboratory Last Values WBC 10.8 K/mm3 (4.5-11.0) 04/09/21 13:59 Hgb 9.2 gm/dl (10.1-14.3) L 04/09/21 13:59 Hct 28.1 % (30.3-42.9) L 04/09/21 13:59 MCV 87 fl (79-97) 04/09/21 13:59 Plt Count 404 K/mm3 (140-440) 04/09/21 13:59 Percent Retic 1.43 % (0.78-2.58) 04/09/21 13:59 PT 16.8 Sec. (12.2-14.9) H 04/09/21 13:59 INR 1.31 (0.87-1.13) H 04/09/21 13:59 APTT 99.2 Sec. (24.2-36.6) H* 04/09/21 13:59 D-Dimer > 77313 ng/mlDDU (0-234) H 04/09/21 05:13 Heparin Anti-Xa Level 0.69 U.I./ml (0.3-0.7) 04/09/21 13:59 Creatinine 0.8 mg/dL (0.6-1.2) 04/09/21 13:59 Iron 18 ug/dL (37-170) L 04/09/21 05:13 TIBC 173 mcg/dL (250-450) L 04/09/21 05:13 Ferritin 1250.0 ng/mL (10.0-200.0) H 04/09/21 05:13 Total Bilirubin 0.80 mg/dL (0.1-1.2) 04/07/21 17:50 AST 108 units/L (5-40) H 04/07/21 17:50 ALT 150 units/L (7-56) H 04/07/21 17:50 Alkaline Phosphatase 240 units/L (35-129) H 04/07/21 17:50 Lactate Dehydrogenase 330 units/L (91-180) H 04/09/21 13:59 Albumin/Globulin Ratio 0.8 % 04/07/21 17:50 Past History Past Medical History: arthritis, DVT (Cervical cancer in remission) Medications and Allergies Allergies Allergy/AdvReac Type Severity Reaction Status Date / Time No Known Allergies Allergy Verified 11/08/20 11:06 Home Medications Medication Instructions Recorded Confirmed Last Taken Type No Known Home Medications [No 04/08/21 04/08/21 Unknown History Reported Home Medications] Active Meds: Active Medications Acetaminophen (Acetaminophen 325 Mg Tab) 650 mg PO Q4H PRN PRN Reason: Pain MILD(1-3)/Fever >100.5/NIETO Last Admin: 04/09/21 03:33 Dose: 650 mg Documented by: Albuterol (Albuterol 2.5 Mg/3 Ml Nebu) 2.5 mg IH Q4HRT PRN PRN Reason: Shortness Of Breath Albuterol/Ipratropium (Ipratropium/Albuterol Sulfate 3 Ml Ampul.Neb) 1 ampul IH Q6HRT [facility] Last Admin: 04/09/21 07:59 Dose: Not Given Documented by: Famotidine (Famotidine 20 Mg Tab) 20 mg PO BID [facility] Last Admin: 04/09/21 10:13 Dose: 20 mg Documented by: Heparin Sodium (Porcine) (Heparin 10,000 Units/10 Ml Vial) 3,900 unit 40 unit/kg (3900 unit) IV Q6H PRN PRN Reason: Anti-Xa Assay < 0.1 units/ml Heparin Sodium/Sodium Chloride (Heparin/ 0.45% Nacl-25,000 Unit/500 Ml) 25,000 unit in 500 mls @ 29 mls/hr IV TITR [facility]; Protocol Last Admin: 04/09/21 10:16 Dose: 1,350 units/hr, 27 mls/hr Documented by: Morphine Sulfate (Morphine 2 Mg/1 Ml Inj) 2 mg IV Q4H PRN PRN Reason: Pain, Moderate (4-6) Last Admin: 04/09/21 10:13 Dose: 2 mg Documented by: Ondansetron HCl (Ondansetron 4 Mg/2 Ml Inj) 4 mg IV Q8H PRN PRN Reason: Nausea And Vomiting Sodium Chloride (Sodium Chloride 0.9% 10 Ml Flush Syringe) 10 ml IV BID [facility] Last Admin: 04/09/21 10:14 Dose: 10 ml Documented by: Sodium Chloride (Sodium Chloride 0.9% 10 Ml Flush Syringe) 10 ml IV PRN PRN PRN Reason: LINE FLUSH Last Admin: 04/08/21 20:30 Dose: 10 ml Documented by: Exam - Constitutional Vitals: Last Vital Signs Temp 98.5 F 04/09/21 07:55 Pulse 88 04/09/21 07:55 Resp 18 04/09/21 07:55 BP 126/79 04/09/21 07:55 Pulse Ox 100 04/09/21 07:55 Results - Labs lab Results: Laboratory Results - last 24 hr 04/09/21 04/09/21 04/09/21 05:13 05:13 05:13 WBC 11.3 H RBC 2.98 L Hgb 9.0 L Hct 26.0 L MCV 87 MCH 30 MCHC 35 H RDW 15.3 H Plt Count 339 Lymph % (Auto) 8.9 L [place] % (Auto) 7.1 Eos % (Auto) 0.5 Baso % (Auto) 0.4 Lymph # (Auto) 1.0 L [place] # (Auto) 0.8 Eos # (Auto) 0.1 Baso # (Auto) 0.0 Seg Neutrophils % 83.1 H Seg Neutrophils # 9.4 H D-Dimer > 16352 H Heparin Anti-Xa Level 0.86 H Sodium 136 L Potassium 4.2 Chloride 99.6 Carbon Dioxide 25 Anion Gap 16 BUN 5 L Creatinine 0.8 Estimated GFR > 60 BUN/Creatinine Ratio 6 Glucose 128 H Calcium 9.3
[2021-04-09] MEDS: methylPREDNISolone Sod Succinate 125 MG/2 ML INJ IV SCH (12:34)
[2021-04-09 14:15] LABS: Hematocrit 28.1 % (30.3-42.9); Hemoglobin 9.2 gm/dl (10.1-14.3); Mean Corpuscular HGB Conc 33 % (30-34); Mean Corpuscular Volume 87 fl (79-97); Platelet Count 404 K/mm3 (140-440); Red Blood Count 3.24 M/mm3 (3.65-5.03)
[2021-04-09] MEDS: APIXABAN 5 MG TAB PO SCH ×2 (14:23→22:36)
[2021-04-09] MEDS: oxyCODONE /ACETAMINOPHEN 5-325MG TAB PO PRN ×2 (14:23→22:36)
[2021-04-09 14:39] LABS: INR 1.31 (0.87-1.13)
--- NOTE | 2021-04-09 14:49 | Progress Note ---
Assessment and Plan --Acute hypoxic respiratory failure, present on admission Due to acute pulmonary embolism with pulmonary infarct Continue supplemental nasal cannula O2, nebulizer breathing treatment as needed and scheduled --Right middle lobe Pulmonary embolism Oxygen via nasal catheter per minute DuoNeb by nebulizer every 4 hours. Albuterol via nebulizer every 4 hours as needed. s/p Heparin drip as per protocol. consulted heamatology : Plan to place back on Eliquis -- Pulmonary infarct Oxygen via nasal catheter per minute DuoNeb by nebulizer every 4 hours. Albuterol via nebulizer every 4 hours as needed. consulted pulmonary Hematology recommended pulse dose of steroid -- h/o Cervical cancer Outpatient follow-up with oncology --Normocytic anemia, likely due to chronic disease Continue to monitor H&H -- h/o Deep vein thrombosis (DVT) of iliac vein of right lower extremity patient was taking eliquis at home but recently discontinued for hemoptysis -- Arthritis Stable. Tylenol 650 mg p.o. every 6 hours as needed. Morphine 2 mg IV every 4 hours as needed --Morbid obesity, diet and exercise recommendation when clinically more stable -- Full code status --Heparin drip for DVT prophylaxis. Pepcid 20 mg p.o. twice daily for GI prophylaxis. Daily clinical course: 04/08/21: cont heparin drip, Pt with h/o GI bleed will consult wilfredo and pulmonary for AC recommendation 04/09/21; patient continued to complains of significant chest discomfort, appreciate hematology recommendation. Patient has been initiated on steroid. Will change heparin drip to Eliquis. Monitor H&H. If patient clinically stable and pain improves possible discharge tomorrow. Subjective Date of service: 04/09/21 Interval history: Patient seen and examined. Medical records and medication list reviewed. No acute event overnight noted by the RN. Patient continued to complains of pleuritic chest pain and difficulty breathing. Patient is tolerating diet. transitioned to eliquis today Discussed plan of care at bedside with patient. Objective - Exam Narrative Exam: GENERAL: well-developed and well-nourished lying on bed appeared to be in no discomfort. HEENT: Normocephalic. Atraumatic. No conjunctival congestion or icterus. Patient has moist mucous membranes. NECK: Supple. Trachea midline. CHEST/LUNGS: Clear to auscultated bilaterally, breathing nonlabored. No wheezes crackles or rhonchi. HEART/CARDIOVASCULAR: Regular in rate and rhythm. S1 and S2 positive. ABDOMEN: Abdomen is soft, nontender. Patient has normal bowel sounds. SKIN: There is no rash. Warm and dry. NEURO: No focal motor deficit. Follows command. MUSCULOSKELETAL: No joint effusion or tenderness. EXTRIMITY: No edema, no cyanosis or clubbing. PSYCH: Cooperative. - Constitutional Vitals: Vital Signs - 12hr 04/09/21 04/09/21 04/09/21 03:10 03:20 07:55 Temperature 100.4 F H 98.5 F Pulse Rate 105 H 88 Pulse Rate [ Posterior Bilateral Lower Lobe] Respiratory 19 62 H 18 Rate Respiratory Rate [Posterior Bilateral Lower Lobe] Blood Pressure 144/79 126/79 O2 Sat by Pulse 100 100 Oximetry 04/09/21 04/09/21 10:00 13:28 Temperature Pulse Rate 88 Pulse Rate [ 102 H Posterior Bilateral Lower Lobe] Respiratory 18 Rate Respiratory 19 Rate [Posterior Bilateral Lower Lobe] Blood Pressure O2 Sat by Pulse 100 Oximetry - Labs CBC & Chem 7: 04/09/21 13:59 04/09/21 13:59 Labs: Abnormal lab results 04/09/21 04/09/21 04/09/21 Range/Units 05:13 05:13 05:13 WBC 11.3 H (4.5-11.0) K/mm3 RBC 2.98 L (3.65-5.03) M/mm3 Hgb 9.0 L (10.1-14.3) gm/dl Hct 26.0 L (30.3-42.9) % MCHC 35 H (30-34) % RDW 15.3 H (13.2-15.2) % Lymph % (Auto) 8.9 L (13.4-35.0) % Lymph # (Auto) 1.0 L (1.2-5.4) K/mm3 Seg Neutrophils % 83.1 H (40.0-70.0) % Seg Neutrophils # 9.4 H (1.8-7.7) K/mm3 PT (12.2-14.9) Sec. INR (0.87-1.13) D-Dimer > 42152 H (0-234) ng/mlDDU Heparin Anti-Xa Level 0.86 H (0.3-0.7) U.I./ml Sodium 136 L (137-145) mmol/L BUN 5 L (7-17) mg/dL Glucose 128 H (65-100) mg/dL 04/09/21 04/09/21 Range/Units 13:59 13:59 WBC (4.5-11.0) K/mm3 RBC 3.24 L (3.65-5.03) M/mm3 Hgb 9.2 L (10.1-14.3) gm/dl Hct 28.1 L (30.3-42.9) % MCHC (30-34) % RDW 16.0 H (13.2-15.2) % Lymph % (Auto) (13.4-35.0) % Lymph # (Auto) (1.2-5.4) K/mm3 Seg Neutrophils % (40.0-70.0) % Seg Neutrophils # (1.8-7.7) K/mm3 PT 16.8 H (12.2-14.9) Sec. INR 1.31 H (0.87-1.13) D-Dimer (0-234) ng/mlDDU Heparin Anti-Xa Level (0.3-0.7) U.I./ml Sodium (137-145) mmol/L BUN (7-17) mg/dL Glucose (65-100) mg/dL HEART Score - HEART Score Troponin: Troponin T < 0.010 ng/mL (0.00-0.029) 04/07/21 17:50
[2021-04-09 15:08] LABS: Partial Thromboplastin Time 99.2 Sec. (24.2-36.6)
--- NOTE | 2021-04-09 16:50 | Consultation ---
History of Present Illness Consult date: 04/09/21 Reason for consult: dyspnea, cough, pulmonary embolism History of present illness: 45-year-old female with past medical history of cervical cancer and right leg DVT was brought to the emergency room because of shortness of breath and right-sided chest pain. Patient states that she was on Eliquis secondary to a DVT and she had in the past while battling cancer. She was taken off of the Eliquis on March 26 because she had a Chemo-Port removed. She restarted the medication but then she had become ill and had some episodes where she was coug juju up blood and she was restopped from taking the Eliquis 4 days ago. Patient states that on March 30 which is approximately 8 days ago she started having some pain in the right side of her neck and right chest. Patient was having chills as well with cough. Saw her primary care physician 2 days later on the sixth had a chest x-ray which showed a possible right-sided middle upper lobe pneumonia. Patient started on a Z-David which the patient did not start until April 04. Since that time the patient is continued to have pleuritic chest pain and cough. She has had off-and-on fevers as well. She denies nausea vomiting diarrhea. Patient had a CT of the chest with contrast which showed abnormal appearance of the right hilum with multiple enlarged lymph nodes in intrapulmonary artery lower pulmonary vein low-density areas in the postcontrast study suspicious for thrombus versus tumor thrombus with opacification to the lateral segment of the right middle lobe in the superior segment of the right lower lobe with loculated pleural effusion present. Some mild anterior pericardial thickening may be related to the same etiology. This was not a CTA and is not delineating whether there is a pulmonary embolus. In the emergency room patient has a CTA which shows patient has pulmonary embo lism. We are going to admit the patient I put the patient on heparin drip. Patient awake. Patient is on 2 litres o2. O2 saturation running 96%. No hsory of smoking, alcohol or drug abuse. 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 Not . Children 1. No known drug allergies. Patient afebrile. No leukocytosis. Complaing shortness of breath and non productive cough. Patient presently on Apixaban, solumedrol. albuterol/atrovent aerosol treatments and famotidine. Past History Past Medical History: arthritis, DVT (Cervical cancer in remission), other (cer vical cancer.) Medications and Allergies Allergies Allergy/AdvReac Type Severity Reaction Status Date / Time No Known Allergies Allergy Verified 11/08/20 11:06 Home Medications Medication Instructions Recorded Confirmed Last Taken Type No Known Home Medications [No 04/08/21 04/08/21 Unknown History Reported Home Medications] Active Meds: Active Medications Acetaminophen (Acetaminophen 325 Mg Tab) 650 mg PO Q4H PRN PRN Reason: Pain MILD(1-3)/Fever >100.5/NIETO Last Admin: 04/09/21 12:36 Dose: 650 mg Documented by: Albuterol (Albuterol 2.5 Mg/3 Ml Nebu) 2.5 mg IH Q4HRT PRN PRN Reason: Shortness Of Breath Albuterol/Ipratropium (Ipratropium/Albuterol Sulfate 3 Ml Ampul.Neb) 1 ampul IH Q6HRT [facility] Last Admin: 04/09/21 13:28 Dose: 1 ampul Documented by: Apixaban (Apixaban 5 Mg Tab) 10 mg PO Q12HR [facility]; Protocol Stop: 04/15/21 22:01 Last Admin: 04/09/21 14:23 Dose: 10 mg Documented by: Famotidine (Famotidine 20 Mg Tab) 20 mg PO BID [facility] Last Admin: 04/09/21 10:13 Dose: 20 mg Documented by: Methylprednisolone Sodium Succinate (Methylprednisolone Sod Succinate 125 Mg/2 Ml Inj) 80 mg IV Q12H [facility] Stop: 04/11/21 11:59 Last Admin: 04/09/21 12:34 Dose: 80 mg Documented by: Morphine Sulfate (Morphine 2 Mg/1 Ml Inj) 2 mg IV Q4H PRN PRN Reason: Pain, Moderate (4-6) Last Admin: 04/09/21 10:13 Dose: 2 mg Documented by: Ondansetron HCl (Ondansetron 4 Mg/2 Ml Inj) 4 mg IV Q8H PRN PRN Reason: Nausea And Vomiting Oxycodone/Acetaminophen (Oxycodone /Acetaminophen 5-325mg Tab) 1 tab PO Q6H PRN PRN Reason: Pain, Moderate (4-6) Last Admin: 04/09/21 14:23 Dose: 1 tab Documented by: Sodium Chloride (Sodium Chloride 0.9% 10 Ml Flush Syringe) 10 ml IV BID ALTAGRACIA Last Admin: 04/09/21 10:14 Dose: 10 ml Documented by: Sodium Chloride (Sodium Chloride 0.9% 10 Ml Flush Syringe) 10 ml IV PRN PRN PRN Reason: LINE FLUSH Last Admin: 04/08/21 20:30 Dose: 10 ml Documented by: Review of Systems All systems: negative Physical Examination Vital signs: Vital Signs Temp Pulse Resp BP Pulse Ox 100.8 F H 120 H 20 127/81 99 04/07/21 17:35 04/07/21 17:35 04/07/21 17:35 04/07/21 17:35 04/07/21 17:35 General appearance: no acute distress, alert Eyes: non-icteric Neck: supple, no JVD Ascultation: Bilateral: diminished breath sounds Cardiovascular: regular rate and rhythm Gastrointestinal: normoactive bowel sounds, soft, non-tender Integumentary: normal Extremities: no cyanosis, no edema Musculoskeletal: no deformities Gait: poor gait normal mental status, non-focal exam mood appropriate, affect normal Results - Laboratory Findings CBC and BMP: 04/09/21 13:59 04/09/21 13:59 PT/INR, D-dimer PT 16.8 Sec. (12.2-14.9) H 04/09/21 13:59 INR 1.31 (0.87-1.13) H 04/09/21 13:59 D-Dimer > 45027 ng/mlDDU (0-234) H 04/09/21 05:13 Abnormal lab findings: Abnormal Labs 04/07/21 04/07/21 04/07/21 17:50 17:50 17:50 WBC RBC 3.61 L Hgb Hct MCHC RDW 15.5 H Lymph % (Auto) 7.6 L [place] % (Auto) 8.4 H Lymph # (Auto) 0.7 L Seg Neutrophils % 83.1 H Seg Neutrophils # 7.8 H PT 15.6 H INR 1.19 H APTT D-Dimer Heparin Anti-Xa Level Sodium Chloride 97.3 L BUN Glucose 116 H AST 108 H ALT 150 H Alkaline Phosphatase 240 H Total Protein 8.8 H 04/07/21 04/07/21 04/08/21 23:27 23:27 06:40 WBC RBC 3.27 L Hgb 9.3 L 9.6 L Hct 27.8 L 28.1 L MCHC RDW 15.7 H Lymph % (Auto) 8.8 L [place] % (Auto) Lymph # (Auto) 0.9 L Seg Neutrophils % 83.5 H Seg Neutrophils # 8.7 H PT 16.1 H INR 1.24 H APTT D-Dimer Heparin Anti-Xa Level Sodium Chloride BUN Glucose AST ALT Alkaline Phosphatase Total Protein 04/08/21 04/09/21 04/09/21 06:40 05:13 05:13 WBC 11.3 H RBC 2.98 L Hgb 9.0 L Hct 26.0 L MCHC 35 H RDW 15.3 H Lymph % (Auto) 8.9 L [place] % (Auto) Lymph # (Auto) 1.0 L Seg Neutrophils % 83.1 H Seg Neutrophils # 9.4 H PT INR APTT D-Dimer > 79432 H Heparin Anti-Xa Level 0.86 H Sodium Chloride BUN 6 L Glucose 132 H AST ALT Alkaline Phosphatase Total Protein 04/09/21 04/09/21 04/09/21 05:13 13:59 13:59 WBC RBC 3.24 L Hgb 9.2 L Hct 28.1 L MCHC RDW 16.0 H Lymph % (Auto) [place] % (Auto) Lymph # (Auto) Seg Neutrophils % Seg Neutrophils # PT 16.8 H INR 1.31 H APTT 99.2 H* D-Dimer Heparin Anti-Xa Level Sodium 136 L Chloride BUN 5 L Glucose 128 H AST ALT Alkaline Phosphatase Total Protein - Diagnostic Findings CT scan - chest: report reviewed, image reviewed Additional studies: CTA CHEST WITH CONTRAST 04/07/21 INDICATION / CLINICAL INFORMATION: Dyspnea x 1 week, pain with breathing, Hx of a DVT.. TECHNIQUE: Axial CT images were obtained through the chest after injection of IV contrast. 3 plane MIP and/or 3D reconstructions were produced. All CT scans at this location are performed using CT dose reduction for ALARA by means of automated exposure control. COMPARISON: None available. FINDINGS: PULMONARY ARTERIES: Complete filling defect of the segmental and subsegmental pulmonary arteries of the right middle lobe and right lower lobe. Clot extends to the distal right main pulmonary artery. There is no saddle embolus. No discrete filling defects seen within the pulmonary arteries of the right upper lobe or the left lung. THORACIC AORTA: No significant abnormality. HEART: No significant abnormality. No evidence of right heart strain. RB/LV rat io is within normal limits. ADENOPATHY: No significant adenopathy. LUNGS/PLEURA: Small right pleural effusion with dense airspace consolidation peripherally within the right lower lobe, with consolidation in the right middle lobe. There is lingular and left lower lobe volume loss. Lungs otherwise clear. No pneumothorax. ADDITIONAL FINDINGS: None. UPPER ABDOMEN: Focal area of hyperenhancement within the right kidney may reflect artifact or focal perfusion abnormality. No acute abnormality. SKELETAL STRUCTURES: No significant osseous abnormality. IMPRESSION: 1. Acute occlusive pulmonary embolus of the right lower lobe with involvement of the segmental right middle lobe pulmonary arteries. Embolus extends to the distal right main pulmonary artery. No discrete pulmonary emboli seen in the right upper lobe or left lung. 2. Small right pleural effusion with dense airspace consolidation within the right lower lobe, less so within the right middle lobe, compatible with pulmonary infarct. 3. No evidence of right heart strain. 4. Other incidental findings, as above. Assessment and Plan 45-year-old female with past medical history of cervical cancer and right leg DVT was brought to the emergency room because of shortness of breath and right- sided chest pain. Patient states that she was on Eliquis secondary to a DVT and she had in the past while battling cancer. She was taken off of the Eliquis on March 26 because she had a Chemo-Port removed. She restarted the medication but then she had become ill and had some episodes where she was coughing up blood and she was restopped from taking the Eliquis 4 days ago. Patient states that on March 30 which is approximately 8 days ago she started having some pain in the right side of her neck and right chest. Patient was having chills as well with cough. Saw her primary care physician 2 days later on the sixth had a chest x- ray which showed a possible right-sided middle upper lobe pneumonia. Patient started on a Z-David which the patient did not start until April 04. Since that time the patient is continued to have pleuritic chest pain and cough. She has had off-and-on fevers as well. She denies nausea vomiting diarrhea. Patient had a CT of the chest with contrast which showed abnormal appearance of the right hilum with multiple enlarged lymph nodes in intrapulmonary artery lower pulmonary vein low-density areas in the postcontrast study suspicious for thrombus versus tumor thrombus with opacification to the lateral segment of the right middle lobe in the superior segment of the right lower lobe with loculated pleural effusion present. Some mild anterior pericardial thickening may be related to the same etiology. This was not a CTA and is not delineating whether there is a pulmonary embolus. In the emergency room patient has a CTA which shows patient has pulmonary embolism. We are going to admit the patient I put the patient on heparin drip. Patient awake. Patient is on 2 litres o2. O2 saturation running 96%. No hsory of smoking, alcohol or drug abuse. 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 Not . 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 No known drug allergies. Patient afebrile. No leukocytosis. Complaing shortness of breath and non productive cough. Patient presently on Apixaban, solumedrol. albuterol/atrovent aerosol treatments and famotidine. - Patient Problems (1) Pulmonary embolism Current Visit: Yes Status: Acute Plan to address problem: Patient is on Apixaban (2) Pulmonary infarct Current Visit: Yes Status: Acute Plan to address problem: Watch for any signs of Hemoptysis. (3) Deep vein thrombosis (DVT) of iliac vein of right lower extremity Current Visit: No Status: Acute Plan to address problem: History of DVT. Patient is on Apixaban.
[2021-04-09 17:44] LABS: Iron 18 ug/dL (37-170); Total Iron Binding Capacity 173 mcg/dL (250-450)
[2021-04-10] MEDS: methylPREDNISolone Sod Succinate 125 MG/2 ML INJ IV SCH ×2 (00:56→12:38)
[2021-04-10] MEDS: IPRATROPIUM/ALBUTEROL SULFATE 3 ML AMPUL.NEB IH SCH ×4 (05:42→19:57)
[2021-04-10] MEDS: FAMOTIDINE 20 MG TAB PO SCH ×2 (09:51→21:57)
[2021-04-10] MEDS: APIXABAN 5 MG TAB PO SCH ×2 (09:52→21:57)
[2021-04-10] MEDS: oxyCODONE /ACETAMINOPHEN 5-325MG TAB PO PRN (09:52)
[2021-04-10] MEDS ORDERED: SODIUM FERRIC GLUCON/SUCRO 125 MG in SODIUM CHLORIDE 0.9% 100 ML IV ONE (11:30)
--- NOTE | 2021-04-10 12:46 | Progress Note ---
Assessment and Plan Acute Pulmonary embolism Pulmonary infarct Deep vein thrombosis (DVT) of iliac vein of right lower extremity Morbid Obesity - continue full anticoagulation for VTE - pleural effusion likely related to post infarct necrosis; will get US chest and address - hematology work-up appropriate - continue care as below otherwise; - continue to wean supplemental oxygen to keep O2 sats > 90% - continue Bronchodilators (TARUN & LABA) with pulm hygiene per RT - continue systemic steroids with slow taper - continue inhaled corticosteroids - avoid nephrotoxins, renally dose all medications - continue mobility protocols to prevent pressure ulcers - PT/OT as tolerated - Wound care per RN/WCT - continue accuchecks with glycemic control per SSI for target blood glucose < 180 mg/dL - tobacco abstinence strongly counseled at the bedside - home oxygen evaluation at discharge - prn analgesia per pain score - GI & VTE prophylaxis - Flu & pneumovax per protocol - Pulmonary out patient follow up for PFTs and optimization of respiratory status - continue other care per attending / other consultants ... re-evaluate in am & prn Subjective Date of service: 04/10/21 Principal diagnosis: Acute Pulmonary embolism; Pulmonary infarct; DVT; Morbid Obesity Interval history: Patient is seen today for: Acute Pulmonary embolism; Pulmonary infarct; DVT; Morbid Obesity Seen and examined at bedside; 24hour events reviewed; nursing and respiratory care staff consulted; no adverse overnight events reported to me; resting in bed; still SOB; states that she feels like she's she's drowning when she lays flat or on her left side; no gross bleeding; afebrile Objective Vital Signs - 12hr 04/10/21 04/10/21 04/10/21 03:02 04:00 07:13 Temperature 98.4 F 98.1 F Pulse Rate 89 75 83 Pulse Rate [ Posterior Bilateral Lower Lobe] Respiratory 16 19 Rate Respiratory Rate [Posterior Bilateral Lower Lobe] Blood Pressure 139/73 151/89 O2 Sat by Pulse 94 95 Oximetry 04/10/21 04/10/21 08:32 08:49 Temperature Pulse Rate Pulse Rate [ 85 Posterior Bilateral Lower Lobe] Respiratory Rate Respiratory 20 Rate [Posterior Bilateral Lower Lobe] Blood Pressure O2 Sat by Pulse 97 Oximetry Constitutional: no acute distress, alert Eyes: non-icteric ENT: oropharynx moist Neck: supple, no lymphadenopathy, no JVD Effort: mildly labored Ascultation: Right: diminished breath sounds (bases and mid-lung zones), egophony, Bilateral: rales Percussion: Bilateral: not dull Cardiovascular: regular rate and rhythm Gastrointestinal: normoactive bowel sounds, soft, non-tender, non-distended (protuberant) Integumentary: normal Extremities: no cyanosis, no edema, pulses normal, no ischemia or petechiae Neurologic: normal mental status, non-focal exam, pupils equal and round, motor strength normal and Psychiatric: mood appropriate, affect normal CBC and BMP: 04/11/21 06:39 04/09/21 13:59 ABG, PT/INR, D-dimer: PT/INR, D-dimer PT 16.8 Sec. (12.2-14.9) H 04/09/21 13:59 INR 1.31 (0.87-1.13) H 04/09/21 13:59 D-Dimer > 57259 ng/mlDDU (0-234) H 04/09/21 05:13 Abnormal lab findings: Abnormal Labs 04/07/21 04/07/21 04/07/21 17:50 17:50 17:50 WBC RBC 3.61 L Hgb Hct MCHC RDW 15.5 H Lymph % (Auto) 7.6 L [place] % (Auto) 8.4 H Lymph # (Auto) 0.7 L Seg Neutrophils % 83.1 H Seg Neutrophils # 7.8 H PT 15.6 H INR 1.19 H APTT D-Dimer Heparin Anti-Xa Level Sodium Chloride 97.3 L BUN Glucose 116 H Iron TIBC Ferritin AST 108 H ALT 150 H Alkaline Phosphatase 240 H Lactate Dehydrogenase Total Protein 8.8 H 04/07/21 04/07/21 04/08/21 23:27 23:27 06:40 WBC RBC 3.27 L Hgb 9.3 L 9.6 L Hct 27.8 L 28.1 L MCHC RDW 15.7 H Lymph % (Auto) 8.8 L [place] % (Auto) Lymph # (Auto) 0.9 L Seg Neutrophils % 83.5 H Seg Neutrophils # 8.7 H PT 16.1 H INR 1.24 H APTT D-Dimer Heparin Anti-Xa Level Sodium Chloride BUN Glucose Iron TIBC Ferritin AST ALT Alkaline Phosphatase Lactate Dehydrogenase Total Protein 04/08/21 04/09/21 04/09/21 06:40 05:13 05:13 WBC 11.3 H RBC 2.98 L Hgb 9.0 L Hct 26.0 L MCHC 35 H RDW 15.3 H Lymph % (Auto) 8.9 L [place] % (Auto) Lymph # (Auto) 1.0 L Seg Neutrophils % 83.1 H Seg Neutrophils # 9.4 H PT INR APTT D-Dimer > 71681 H Heparin Anti-Xa Level 0.86 H Sodium Chloride BUN 6 L Glucose 132 H Iron TIBC Ferritin AST ALT Alkaline Phosphatase Lactate Dehydrogenase Total Protein 04/09/21 04/09/21 04/09/21 05:13 05:13 05:13 WBC RBC Hgb Hct MCHC RDW Lymph % (Auto) [place] % (Auto) Lymph # (Auto) Seg Neutrophils % Seg Neutrophils # PT INR APTT D-Dimer Heparin Anti-Xa Level Sodium 136 L Chloride BUN 5 L Glucose 128 H Iron 18 L TIBC 173 L Ferritin 1250.0 H AST ALT Alkaline Phosphatase Lactate Dehydrogenase Total Protein 04/09/21 04/09/21 04/09/21 13:59 13:59 13:59 WBC RBC 3.24 L Hgb 9.2 L Hct 28.1 L MCHC RDW 16.0 H Lymph % (Auto) [place] % (Auto) Lymph # (Auto) Seg Neutrophils % Seg Neutrophils # PT 16.8 H INR 1.31 H APTT 99.2 H* D-Dimer Heparin Anti-Xa Level Sodium Chloride BUN Glucose Iron TIBC Ferritin AST ALT Alkaline Phosphatase Lactate Dehydrogenase 330 H Total Protein Chest x-ray: image reviewed Allied health notes reviewed: nursing
--- NOTE | 2021-04-10 14:41 | Progress Note ---
Assessment and Plan --Acute hypoxic respiratory failure, present on admission Due to acute pulmonary embolism with pulmonary infarct Continue supplemental nasal cannula O2, nebulizer breathing treatment as needed and scheduled --Right middle lobe Pulmonary embolism Oxygen via nasal catheter per minute DuoNeb by nebulizer every 4 hours. Albuterol via nebulizer every 4 hours as needed. s/p Heparin drip as per protocol. consulted heamatology : Started on Eliquis We will consult vascular for her persistent complaints of pain to see if she qualifies for any thrombectomy -- Pulmonary infarct Oxygen via nasal catheter per minute DuoNeb by nebulizer every 4 hours. Albuterol via nebulizer every 4 hours as needed. consulted pulmonary Hematology recommended pulse dose of steroid -- h/o Cervical cancer Outpatient follow-up with oncology --Normocytic anemia, likely due to chronic disease Continue to monitor H&H -- h/o Deep vein thrombosis (DVT) of iliac vein of right lower extremity patient was taking eliquis at home but recently discontinued for hemoptysis -- Arthritis Stable. Tylenol 650 mg p.o. every 6 hours as needed. Morphine 2 mg IV every 4 hours as needed --Morbid obesity, diet and exercise recommendation when clinically more stable -- Full code status --Heparin drip for DVT prophylaxis. Pepcid 20 mg p.o. twice daily for GI p rophylaxis. Daily clinical course: 04/08/21: cont heparin drip, Pt with h/o GI bleed will consult heam and pulmonary for AC recommendation 04/09/21; patient continued to complains of significant chest discomfort, appreciate hematology recommendation. Patient has been initiated on steroid. Will change heparin drip to Eliquis. Monitor H&H. If patient clinically stable and pain improves possible discharge tomorrow. 04/10/21: Patient received iron transfusion today, continue to complains of chest tightness and chest pain. Remains on supplemental O2. Follow H&H, consult case management for home O2 arrangement. Follow 2D echo result. PT eval Subjective Date of service: 04/10/21 Principal diagnosis: Acute Pulmonary embolism; Pulmonary infarct; DVT; Morbid Obesity Interval history: Patient seen and examined. Medical records and medication list reviewed. No acute event overnight noted by the RN. Patient continued to complains of pleuritic chest pain and difficulty breathing. Patient remains on 2 to 3 L nasal cannula O2 Patient is tolerating diet. H&H appears to be stable Discussed plan of care at bedside with patient. Objective - Constitutional Vitals: Vital Signs - 12hr 04/10/21 04/10/21 04/10/21 03:02 04:00 07:13 Temperature 98.4 F 98.1 F Pulse Rate 89 75 83 Pulse Rate [ Posterior Bilateral Lower Lobe] Respiratory 16 19 Rate Respiratory Rate [Posterior Bilateral Lower Lobe] Blood Pressure 139/73 151/89 O2 Sat by Pulse 94 95 Oximetry 04/10/21 04/10/21 08:32 08:49 Temperature Pulse Rate Pulse Rate [ 85 Posterior Bilateral Lower Lobe] Respiratory Rate Respiratory 20 Rate [Posterior Bilateral Lower Lobe] Blood Pressure O2 Sat by Pulse 97 Oximetry - Labs CBC & Chem 7: 04/09/21 13:59 04/09/21 13:59 Labs: Abnormal lab results 04/09/21 04/09/21 04/09/21 Range/Units 05:13 05:13 13:59 PT (12.2-14.9) Sec. INR (0.87-1.13) APTT (24.2-36.6) Sec. Iron 18 L (37-170) ug/dL TIBC 173 L (250-450) mcg/dL Ferritin 1250.0 H (10.0-200.0) ng/mL Lactate Dehydrogenase 330 H (91-180) units/L 04/09/21 Range/Units 13:59 PT 16.8 H (12.2-14.9) Sec. INR 1.31 H (0.87-1.13) APTT 99.2 H* (24.2-36.6) Sec. Iron (37-170) ug/dL TIBC (250-450) mcg/dL Ferritin (10.0-200.0) ng/mL Lactate Dehydrogenase (91-180) units/L HEART Score - HEART Score Troponin: Troponin T < 0.010 ng/mL (0.00-0.029) 04/07/21 17:50
--- NOTE | 2021-04-10 15:22 | XRay Report ---
CHEST 1 VIEW INDICATION: chest pain. COMPARISON: CT 3 days prior FINDINGS: Support devices: None. Heart: Normal. Lungs/Pleura: There is bibasilar pleuroparenchymal disease, greater on the right. No pneumothorax. IMPRESSION: 1. Bibasilar pleuroparenchymal disease, greater on the right. That in the left lower hemithorax appea rs new since the prior but may be largely due to atelectasis with trace pleural fluid. Signer Name: Paolo Odom MD Signed: 04/10/2021 3:17 PM Workstation Name: [id number]
--- NOTE | 2021-04-10 16:31 | Ultrasound Report ---
US chest INDICATION / CLINICAL INFORMATION: Pleural effusion, shortness of breath. COMPARISON: CT 04/07/2021 FINDINGS: There is a right pleural effusion which is approximately 100-150 cc in volume. No left pleural effusi on. IMPRESSION: 1. Small right pleural effusion. Signer Name: Paolo Odom MD Signed: 04/10/2021 4:27 PM Workstation Name: [id number]
[2021-04-11] MEDS: methylPREDNISolone Sod Succinate 125 MG/2 ML INJ IV SCH (01:47)
[2021-04-11] MEDS: oxyCODONE /ACETAMINOPHEN 5-325MG TAB PO PRN (01:51)
[2021-04-11] MEDS: IPRATROPIUM/ALBUTEROL SULFATE 3 ML AMPUL.NEB IH SCH ×4 (02:00→19:26)
[2021-04-11 07:16] LABS: Hemoglobin 9.6 gm/dl (10.1-14.3); Mean Corpuscular HGB Conc 32 % (30-34); Mean Corpuscular Volume 86 fl (79-97); Platelet Count 511 K/mm3 (140-440); Red Blood Count 3.48 M/mm3 (3.65-5.03)
[2021-04-11] MEDS: APIXABAN 5 MG TAB PO SCH (09:05)
[2021-04-11] MEDS: FAMOTIDINE 20 MG TAB PO SCH ×2 (09:06→22:45)
[2021-04-11] MEDS ORDERED: ALBUTEROL 2.5 MG/3 ML NEBU IH PRN (09:29)
--- NOTE | 2021-04-11 10:25 | Hem/Onc Progress Note ---
Subjective Interval history: [facility] [id number] Dx: Pulmonary Embolism 45yo AA woman with PMH of cervical ca and right leg DVT, followed by Dr. Giles (heme/onc) Diagnosed with cervical ca January 2020 with port placement and chemotherapy treatment, now in remission Pt was also started on Eliquis secondary to DVT in 2019 Eliquis was stopped on 03/22/2021 for port removal and resumed 04/01/2021. Pt states on 03/30/2021 she started having pain from the right side of her neck down her ribs with some associated SOB Admitted to [facility] 04/08/2021 and found to have PE --> IV heparin, steroids since admission-->IV heparin then eliquis had chest pain-->steroid pulse yesterday-->says improved still SOB today anxioou-wants to leave when possible asking for no more phlebotomy-has needle phobia DATA reviewed below IMPRESSION: presumed clotting tendency, h/o DVT and now with PE Clotting due to pmh of cervical ca and family history of clotting tendency r/o sickle trait or APLS recent chest pain likely due to pulm infarction-steroid pulse helping elevated liver enzymes, cause unknown mild anemia with mixed iron defic and anemia of chronic inflammation RECOMMEND: arixtra 10mng daily while in hospital-->then eliquis 5mg po bid after discharge continue same steroid pulse for pleuritic chest pain lasix dose today stay in hospital until less SOB anticipate f/u after discharge with heme/ Onc Dr. Giles Objective - Constitutional Vitals: Last Vital Signs Temp 98.0 F 04/11/21 07:21 Pulse 84 04/11/21 09:22 Resp 18 04/11/21 09:22 BP 148/95 04/11/21 07:21 Pulse Ox 97 04/11/21 09:27 - Labs Lab Results: Laboratory Results - last 24 hr 04/11/21 06:39 WBC 15.5 H RBC 3.48 L Hgb 9.6 L Hct 30.0 L MCV 86 MCH 28 MCHC 32 RDW 16.0 H Plt Count 511 H Medications & Allergies - Medications Allergies/Adverse Reactions: Allergies No Known Allergies Allergy (Verified 11/08/20 11:06) Home Medications: Home Medications Medication Instructions Recorded Confirmed Last Taken Type No Known Home Medications [No 04/08/21 04/08/21 Unknown History Reported Home Medications] Active Medications: Generic Name Dose Route Start Last Admin Trade Name Freq PRN Reason Stop Dose Admin Acetaminophen 650 mg 04/07/21 23:45 04/09/21 12:36 Acetaminophen 325 Mg Tab PO 650 mg Q4H PRN Administration Pain MILD(1-3)/Fever >100.5/NIETO Albuterol 2.5 mg 04/11/21 09:29 Albuterol 2.5 Mg/3 Ml Nebu IH Q4HRT PRN Shortness Of Breath Albuterol/Ipratropium 1 ampul 04/11/21 14:00 Ipratropium/Albuterol Sulfate 3 Ml Ampul.Neb IH TIDRT ALTAGRACIA Famotidine 20 mg 04/08/21 10:00 04/11/21 09:06 Famotidine 20 Mg Tab PO 20 mg BID ALTAGRACIA Administration Fondaparinux 10 mg 04/11/21 11:00 Fondaparinux 7.5 Mg/0.6 Ml Inj SUB-Q QDAY ALTAGRACIA Methylprednisolone Sodium Succinate 80 mg 04/09/21 12:00 04/11/21 01:47 Methylprednisolone Sod Succinate 125 Mg/2 Ml Inj IV 04/11/21 11:59 80 mg Q12H ALTAGRACIA Administration Morphine Sulfate 2 mg 04/07/21 23:45 04/09/21 10:13 Morphine 2 Mg/1 Ml Inj IV 2 mg Q4H PRN Administration Pain, Moderate (4-6) Ondansetron HCl 4 mg 04/07/21 23:45 Ondansetron 4 Mg/2 Ml Inj IV Q8H PRN Nausea And Vomiting Oxycodone/Acetaminophen 1 tab 04/09/21 13:30 04/11/21 01:51 Oxycodone /Acetaminophen 5-325mg Tab PO 1 tab Q6H PRN Administration Pain, Moderate (4-6) Sodium Chloride 10 ml 04/08/21 10:00 04/11/21 09:06 Sodium Chloride 0.9% 10 Ml Flush Syringe IV 10 ml BID ALTAGRACIA Administration Sodium Chloride 10 ml 04/07/21 23:45 04/08/21 20:30 Sodium Chloride 0.9% 10 Ml Flush Syringe IV 10 ml PRN PRN Administration LINE FLUSH
[2021-04-11] MEDS ORDERED: FONDAPARINUX 7.5 MG/0.6 ML INJ SUB-Q SCH (11:00)
[2021-04-11] MEDS ORDERED: FUROSEMIDE 20 MG/2 ML INJ IV NR (12:00)
--- NOTE | 2021-04-11 14:57 | Progress Note ---
Assessment and Plan Acute Pulmonary embolism Pulmonary infarct Deep vein thrombosis (DVT) of iliac vein of right lower extremity Morbid Obesity - follow US chest - continue full anticoagulation for VTE - hematology work-up ongoing - continue care as below otherwise; - continue to wean supplemental oxygen to keep O2 sats > 90% - continue Bronchodilators (TARUN & LABA) with pulm hygiene per RT - continue systemic steroids with slow taper - continue inhaled corticosteroids - avoid nephrotoxins, renally dose all medications - continue mobility protocols to prevent pressure ulcers - PT/OT as tolerated - Wound care per RN/WCT - continue accuchecks with glycemic control per SSI for target blood glucose < 180 mg/dL - tobacco abstinence strongly counseled at the bedside - home oxygen evaluation at discharge - prn analgesia per pain score - GI & VTE prophylaxis - Flu & pneumovax per protocol - Pulmonary out patient follow up for PFTs and optimization of respiratory status - continue other care per attending / other consultants ... re-evaluate in am & prn Subjective Date of service: 04/11/21 Principal diagnosis: Acute Pulmonary embolism; Pulmonary infarct; DVT; Morbid Obesity Interval history: Patient is seen today for: Acute Pulmonary embolism; Pulmonary infarct; DVT; Morbid Obesity Seen and examined at bedside; 24hour events reviewed; nursing and respiratory care staff consulted; no adverse overnight events reported to me; resting in bed; remains on supplemental oxygen; await US chest; no gross bleeding Objective Vital Signs - 12hr 04/11/21 04/11/21 04/11/21 04:00 04:36 07:21 Temperature 98.1 F 98.0 F Pulse Rate 75 76 86 Pulse Rate [ Anterior Bilateral Throughout] Pulse Rate [ Posterior Bilateral Lower Lobe] Respiratory 18 19 Rate Respiratory Rate [Anterior Bilateral Throughout] Respiratory Rate [Posterior Bilateral Lower Lobe] Blood Pressure 132/76 148/95 Blood Pressure [Left] O2 Sat by Pulse 95 96 Oximetry 04/11/21 04/11/21 04/11/21 09:21 09:22 09:27 Temperature Pulse Rate Pulse Rate [ Anterior Bilateral Throughout] Pulse Rate [ 84 Posterior Bilateral Lower Lobe] Respiratory Rate Respiratory Rate [Anterior Bilateral Throughout] Respiratory 18 Rate [Posterior Bilateral Lower Lobe] Blood Pressure Blood Pressure [Left] O2 Sat by Pulse 97 97 Oximetry 04/11/21 04/11/21 11:58 13:44 Temperature 98.0 F Pulse Rate 94 H Pulse Rate [ 91 H Anterior Bilateral Throughout] Pulse Rate [ Posterior Bilateral Lower Lobe] Respiratory 19 Rate Respiratory 16 Rate [Anterior Bilateral Throughout] Respiratory Rate [Posterior Bilateral Lower Lobe] Blood Pressure Blood Pressure 144/79 [Left] O2 Sat by Pulse 98 Oximetry Constitutional: no acute distress, alert Eyes: non-icteric ENT: oropharynx moist Neck: supple, no lymphadenopathy, no JVD Effort: mildly labored Ascultation: Right: diminished breath sounds (bases and mid-lung zones), egop hony, Bilateral: rales Percussion: Bilateral: not dull Cardiovascular: regular rate and rhythm Gastrointestinal: normoactive bowel sounds, soft, non-tender, non-distended (protuberant) Integumentary: normal Extremities: no cyanosis, no edema, pulses normal, no ischemia or petechiae Neurologic: normal mental status, non-focal exam, pupils equal and round, motor strength normal and Psychiatric: mood appropriate, affect normal CBC and BMP: 04/11/21 06:39 04/09/21 13:59 ABG, PT/INR, D-dimer: PT/INR, D-dimer PT 16.8 Sec. (12.2-14.9) H 04/09/21 13:59 INR 1.31 (0.87-1.13) H 04/09/21 13:59 D-Dimer > 35531 ng/mlDDU (0-234) H 04/09/21 05:13 Abnormal lab findings: Abnormal Labs 04/07/21 04/07/21 04/07/21 17:50 17:50 17:50 WBC RBC 3.61 L Hgb Hct MCHC RDW 15.5 H Plt Count Lymph % (Auto) 7.6 L [place] % (Auto) 8.4 H Lymph # (Auto) 0.7 L Seg Neutrophils % 83.1 H Seg Neutrophils # 7.8 H PT 15.6 H INR 1.19 H APTT D-Dimer Heparin Anti-Xa Level Sodium Chloride 97.3 L BUN Glucose 116 H Iron TIBC Ferritin AST 108 H ALT 150 H Alkaline Phosphatase 240 H Lactate Dehydrogenase Total Protein 8.8 H 04/07/21 04/07/21 04/08/21 23:27 23:27 06:40 WBC RBC 3.27 L Hgb 9.3 L 9.6 L Hct 27.8 L 28.1 L MCHC RDW 15.7 H Plt Count Lymph % (Auto) 8.8 L [place] % (Auto) Lymph # (Auto) 0.9 L Seg Neutrophils % 83.5 H Seg Neutrophils # 8.7 H PT 16.1 H INR 1.24 H APTT D-Dimer Heparin Anti-Xa Level Sodium Chloride BUN Glucose Iron TIBC Ferritin AST ALT Alkaline Phosphatase Lactate Dehydrogenase Total Protein 04/08/21 04/09/21 04/09/21 06:40 05:13 05:13 WBC 11.3 H RBC 2.98 L Hgb 9.0 L Hct 26.0 L MCHC 35 H RDW 15.3 H Plt Count Lymph % (Auto) 8.9 L [place] % (Auto) Lymph # (Auto) 1.0 L Seg Neutrophils % 83.1 H Seg Neutrophils # 9.4 H PT INR APTT D-Dimer > 08271 H Heparin Anti-Xa Level 0.86 H Sodium Chloride BUN 6 L Glucose 132 H Iron TIBC Ferritin AST ALT Alkaline Phosphatase Lactate Dehydrogenase Total Protein 04/09/21 04/09/21 04/09/21 05:13 05:13 05:13 WBC RBC Hgb Hct MCHC RDW Plt Count Lymph % (Auto) Sau[place] % (Auto) Lymph # (Auto) Seg Neutrophils % Seg Neutrophils # PT INR APTT D-Dimer Heparin Anti-Xa Level Sodium 136 L Chloride BUN 5 L Glucose 128 H Iron 18 L TIBC 173 L Ferritin 1250.0 H AST ALT Alkaline Phosphatase Lactate Dehydrogenase Total Protein 04/09/21 04/09/21 04/09/21 13:59 13:59 13:59 WBC RBC 3.24 L Hgb 9.2 L Hct 28.1 L MCHC RDW 16.0 H Plt Count Lymph % (Auto) [place] % (Auto) Lymph # (Auto) Seg Neutrophils % Seg Neutrophils # PT 16.8 H INR 1.31 H APTT 99.2 H* D-Dimer Heparin Anti-Xa Level Sodium Chloride BUN Glucose Iron TIBC Ferritin AST ALT Alkaline Phosphatase Lactate Dehydrogenase 330 H Total Protein 04/11/21 06:39 WBC 15.5 H RBC 3.48 L Hgb 9.6 L Hct 30.0 L MCHC RDW 16.0 H Plt Count 511 H Lymph % (Auto) [place] % (Auto) Lymph # (Auto) Seg Neutrophils % Seg Neutrophils # PT INR APTT D-Dimer Heparin Anti-Xa Level Sodium Chloride BUN Glucose Iron TIBC Ferritin AST ALT Alkaline Phosphatase Lactate Dehydrogenase Total Protein Allied health notes reviewed: nursing
[2021-04-11] MEDS: FONDAPARINUX 7.5 MG/0.6 ML INJ SUB-Q SCH (16:08)
[2021-04-11] MEDS: FONDAPARINUX 2.5 MG/0.5 ML INJ SUB-Q SCH (16:32)
--- NOTE | 2021-04-11 17:08 | Progress Note ---
Assessment and Plan Assessment and plan: --Acute hypoxic respiratory failure, present on admission Due to acute pulmonary embolism with pulmonary infarct Continue supplemental nasal cannula O2, nebulizer breathing treatment as needed and scheduled --Right middle lobe Pulmonary embolism Oxygen via nasal catheter per minute DuoNeb by nebulizer every 4 hours. Albuterol via nebulizer every 4 hours as needed. s/p Heparin drip as per protocol. consulted heamatology : Started on Eliquis -- Pulmonary infarct Oxygen via nasal catheter per minute DuoNeb by nebulizer every 4 hours. Albuterol via nebulizer every 4 hours as needed. consulted pulmonary Hematology recommended pulse dose of steroid -- h/o Cervical cancer Outpatient follow-up with oncology --Normocytic anemia, likely due to chronic disease Continue to monitor H&H -- h/o Deep vein thrombosis (DVT) of iliac vein of right lower extremity patient was taking eliquis at home but recently discontinued for hemoptysis -- Arthritis Stable. Tylenol 650 mg p.o. every 6 hours as needed. Morphine 2 mg IV every 4 hours as needed --Morbid obesity, diet and exercise recommendation when clinically more stable -- Full code status --Heparin drip for DVT prophylaxis. Pepcid 20 mg p.o. twice daily for GI prophylaxis. Daily clinical course: 04/08/21: cont heparin drip, Pt with h/o GI bleed will consult wilfredo and pulmonary for AC recommendation 04/09/21; patient continued to complains of significant chest discomfort, appreciate hematology recommendation. Patient has been initiated on steroid. Will change heparin drip to Eliquis. Monitor H&H. If patient clinically stable and pain improves possible discharge tomorrow. 04/10/21: Patient received iron transfusion today, continue to complains of chest tightness and chest pain. Remains on supplemental O2. Follow H&H, consult case management for home O2 arrangement. Follow 2D echo result. PT eval 04/11/21: Patient would like to go home however still requiring oxygen and experiencing some chest discomfort. Working to optimize pulmonary status. Will work with CM for home O2. Total Time Spent with Patient (Minutes): 35 History Interval history: Patient seen and examined. No acute event overnight noted by the RN. Patient continued to complains of pleuritic chest pain and difficulty breathing. Patient remains on 2 L humidified nasal cannula O2. Discussed plan of care at bedside with patient. Hospitalist Physical - Physical exam Narrative exam: Physical Exam: GENERAL APPEARANCE: Well developed, well nourished, alert and cooperative, and appears to be in no acute distress. HEAD: normocephalic. EYES: PERRL, EOMI. Vision is grossly intact. EARS: No gross deformities NOSE: No nasal discharge. nasal cannula in place. THROAT: Oral cavity and pharynx normal. No inflammation, swelling, exudate, or lesions. Teeth and gingiva in good general condition. NECK: Neck supple, non-tender without lymphadenopathy, masses or thyromegaly. CARDIAC: Normal S1 and S2. No S3, S4 or murmurs. Rhythm is regular. There is no peripheral edema, cyanosis or pallor. Extremities are warm and well perfused. Capillary refill is less than 2 seconds. No carotid bruits. LUNGS: Clear to auscultation and percussion without rales, rhonchi, wheezing or diminished breath sounds. ABDOMEN: Positive bowel sounds. Soft, nondistended, nontender. No guarding or rebound. No masses. MUSKULOSKELETAL: Adequately aligned spine. ROM intact spine and extremities. No joint erythema or tenderness. Normal muscular development. Normal gait. BACK: Examination of the spine reveals normal gait and posture EXTREMITIES: No significant deformity or joint abnormality. No edema. Peripheral pulses intact. No varicosities. NEUROLOGICAL: CN II-XII intact. Strength and sensation symmetric and intact throughout. Reflexes 2+ throughout. PSYCHIATRIC: The mental examination revealed the patient was oriented to person, place, and time. - Constitutional Vitals: Temp Pulse Resp BP Pulse Ox 98.0 F 91 H 16 144/79 98 04/11/21 11:58 04/11/21 13:44 04/11/21 13:44 04/11/21 11:58 04/11/21 11:58 General appearance: Present: no acute distress, well-nourished HEART Score - HEART Score Troponin: Troponin T < 0.010 ng/mL (0.00-0.029) 04/07/21 17:50 Results - Labs CBC & Chem 7: 04/11/21 06:39 04/09/21 13:59 Labs: Laboratory Last Values WBC 15.5 K/mm3 (4.5-11.0) H 04/11/21 06:39 RBC 3.48 M/mm3 (3.65-5.03) L 04/11/21 06:39 Hgb 9.6 gm/dl (10.1-14.3) L 04/11/21 06:39 Hct 30.0 % (30.3-42.9) L 04/11/21 06:39 MCV 86 fl (79-97) 04/11/21 06:39 MCH 28 pg (28-32) 04/11/21 06:39 MCHC 32 % (30-34) 04/11/21 06:39 RDW 16.0 % (13.2-15.2) H 04/11/21 06:39 Plt Count 511 K/mm3 (140-440) H 04/11/21 06:39 Lymph % (Auto) 8.9 % (13.4-35.0) L 04/09/21 05:13 Gregg % (Auto) 7.1 % (0.0-7.3) 04/09/21 05:13 Eos % (Auto) 0.5 % (0.0-4.3) 04/09/21 05:13 Baso % (Auto) 0.4 % (0.0-1.8) 04/09/21 05:13 Lymph # (Auto) 1.0 K/mm3 (1.2-5.4) L 04/09/21 05:13 Gregg # (Auto) 0.8 K/mm3 (0.0-0.8) 04/09/21 05:13 Eos # (Auto) 0.1 K/mm3 (0.0-0.4) 04/09/21 05:13 Baso # (Auto) 0.0 K/mm3 (0.0-0.1) 04/09/21 05:13 Seg Neutrophils % 83.1 % (40.0-70.0) H 04/09/21 05:13 Seg Neutrophils # 9.4 K/mm3 (1.8-7.7) H 04/09/21 05:13 Percent Retic 1.43 % (0.78-2.58) 04/09/21 13:59 PT 16.8 Sec. (12.2-14.9) H 04/09/21 13:59 INR 1.31 (0.87-1.13) H 04/09/21 13:59 APTT 99.2 Sec. (24.2-36.6) H* 04/09/21 13:59 D-Dimer > 32954 ng/mlDDU (0-234) H 04/09/21 05:13 Heparin Anti-Xa Level 0.69 U.I./ml (0.3-0.7) 04/09/21 13:59 Sodium 136 mmol/L (137-145) L 04/09/21 05:13 Potassium 4.2 mmol/L (3.6-5.0) 04/09/21 05:13 Chloride 99.6 mmol/L (98-107) 04/09/21 05:13 Carbon Dioxide 25 mmol/L (22-30) 04/09/21 05:13 Anion Gap 16 mmol/L 04/09/21 05:13 BUN 5 mg/dL (7-17) L 04/09/21 05:13 Creatinine 0.8 mg/dL (0.6-1.2) 04/09/21 13:59 Estimated GFR > 60 ml/min 04/09/21 13:59 BUN/Creatinine Ratio 6 % 04/09/21 05:13 Glucose 128 mg/dL (65-100) H 04/09/21 05:13 Lactic Acid 0.70 mmol/L (0.7-2.0) 04/07/21 17:50 Calcium 9.3 mg/dL (8.4-10.2) 04/09/21 05:13 Iron 18 ug/dL (37-170) L 04/09/21 05:13 TIBC 173 mcg/dL (250-450) L 04/09/21 05:13 Ferritin 1250.0 ng/mL (10.0-200.0) H 04/09/21 05:13 Total Bilirubin 0.80 mg/dL (0.1-1.2) 04/07/21 17:50 AST 108 units/L (5-40) H 04/07/21 17:50 ALT 150 units/L (7-56) H 04/07/21 17:50 Alkaline Phosphatase 240 units/L (35-129) H 04/07/21 17:50 Lactate Dehydrogenase 330 units/L (91-180) H 04/09/21 13:59 Troponin T < 0.010 ng/mL (0.00-0.029) 04/07/21 17:50 NT-Pro-B Natriuret Pep 21.49 pg/mL (0-450) 04/07/21 17:50 Total Protein 8.8 g/dL (6.3-8.2) H 04/07/21 17:50 Albumin 4.0 g/dL (3.9-5) 04/07/21 17:50 Albumin/Globulin Ratio 0.8 % 04/07/21 17:50 Microbiology: Microbiology 04/07/21 17:50 Peripheral/Venous Blood Culture - Preliminary NO GROWTH AFTER 72 HOURS 04/07/21 18:08 Peripheral/Venous Blood Culture - Preliminary NO GROWTH AFTER 72 HOURS Meza/IV: Voiding Method Toilet Active Medications - Current Medications Current Medications: Generic Name Dose Route Start Last Admin Trade Name Freq PRN Reason Stop Dose Admin Acetaminophen 650 mg 04/07/21 23:45 04/09/21 12:36 Acetaminophen 325 Mg Tab PO 650 mg Q4H PRN Administration Pain MILD(1-3)/Fever >100.5/NIETO Albuterol 2.5 mg 04/11/21 09:29 Albuterol 2.5 Mg/3 Ml Nebu IH Q4HRT PRN Shortness Of Breath Albuterol/Ipratropium 1 ampul 04/11/21 14:00 04/11/21 13:43 Ipratropium/Albuterol Sulfate 3 Ml Ampul.Neb IH 1 ampul TIDRT ALTAGRACIA Administration Famotidine 20 mg 04/08/21 10:00 04/11/21 09:06 Famotidine 20 Mg Tab PO 20 mg BID ALTAGRACIA Administration Fondaparinux 2.5 mg 04/11/21 16:00 04/11/21 16:32 Fondaparinux 2.5 Mg/0.5 Ml Inj SUB-Q 2.5 mg DAILY ALTAGRACIA Administration Fondaparinux 7.5 mg 04/11/21 16:00 04/11/21 16:08 Fondaparinux 7.5 Mg/0.6 Ml Inj SUB-Q 7.5 mg DAILY ALTAGRACIA Administration Morphine Sulfate 2 mg 04/07/21 23:45 04/09/21 10:13 Morphine 2 Mg/1 Ml Inj IV 2 mg Q4H PRN Administration Pain, Moderate (4-6) Ondansetron HCl 4 mg 04/07/21 23:45 Ondansetron 4 Mg/2 Ml Inj IV Q8H PRN Nausea And Vomiting Oxycodone/Acetaminophen 1 tab 04/09/21 13:30 04/11/21 01:51 Oxycodone /Acetaminophen 5-325mg Tab PO 1 tab Q6H PRN Administration Pain, Moderate (4-6) Sodium Chloride 10 ml 04/08/21 10:00 04/11/21 09:06 Sodium Chloride 0.9% 10 Ml Flush Syringe IV 10 ml BID ALTAGRACIA Administration Sodium Chloride 10 ml 04/07/21 23:45 04/08/21 20:30 Sodium Chloride 0.9% 10 Ml Flush Syringe IV 10 ml PRN PRN Administration LINE FLUSH
[2021-04-11] MEDS: FUROSEMIDE 20 MG/2 ML INJ IV SCH (18:40)
[2021-04-12] MEDS: FUROSEMIDE 20 MG/2 ML INJ IV SCH (06:27)
[2021-04-12] MEDS: IPRATROPIUM/ALBUTEROL SULFATE 3 ML AMPUL.NEB IH SCH ×2 (08:14→13:49)
--- NOTE | 2021-04-12 09:41 | Hem/Onc Progress Note ---
Subjective Interval history: data review only 45yo AA woman with PMH of cervical ca and right leg DVT, followed by Dr. Giles (heme/onc) Diagnosed with cervical ca January 2020 with port placement and chemotherapy treatment, now in remission Pt was also started on Eliquis for DVT in 2019 Admitted to [facility] 04/08/2021 and found to have PE --> IV heparin, steroids since admission-->IV heparin then eliquis-->then arixtra had chest pain and hypoxia-->steroid pulse then two doses of lasix doing better-asking to be discharged no new lab data IMPRESSION: presumed clotting tendency, h/o DVT and now with PE Clotting due to pmh of cervical ca and family history of clotting tendency r/o sickle trait or APLS recent chest pain likely due to pulm infarction-steroid pulse helping elevated liver enzymes, cause unknown mild anemia with mixed iron defic and anemia of chronic inflammation RECOMMEND: consider discharge today--> resume eliquis 5mg po bid after discharge anticipate f/u after discharge with heme/ Onc Dr. Giles in 1-2 weeks Objective - Constitutional Vitals: Last Vital Signs Temp 98.7 F 04/12/21 04:00 Pulse 83 04/12/21 04:00 Resp 18 04/12/21 04:00 BP 104/54 04/12/21 04:00 Pulse Ox 100 04/12/21 04:00 Medications & Allergies - Medications Allergies/Adverse Reactions: Allergies No Known Allergies Allergy (Verified 11/08/20 11:06) Home Medications: Home Medications Medication Instructions Recorded Confirmed Last Taken Type No Known Home Medications [No 04/08/21 04/08/21 Unknown History Reported Home Medications] Active Medications: Generic Name Dose Route Start Last Admin Trade Name Freq PRN Reason Stop Dose Admin Acetaminophen 650 mg 04/07/21 23:45 04/09/21 12:36 Acetaminophen 325 Mg Tab PO 650 mg Q4H PRN Administration Pain MILD(1-3)/Fever >100.5/NIETO Albuterol 2.5 mg 04/11/21 09:29 Albuterol 2.5 Mg/3 Ml Nebu IH Q4HRT PRN Shortness Of Breath Albuterol/Ipratropium 1 ampul 04/11/21 14:00 04/12/21 08:14 Ipratropium/Albuterol Sulfate 3 Ml Ampul.Neb IH 1 ampul TIDRT ALTAGRACIA Administration Famotidine 20 mg 04/08/21 10:00 04/11/21 22:45 Famotidine 20 Mg Tab PO 20 mg BID ALTAGRACIA Administration Fondaparinux 2.5 mg 04/11/21 16:00 04/11/21 16:32 Fondaparinux 2.5 Mg/0.5 Ml Inj SUB-Q 2.5 mg DAILY ALTAGRACIA Administration Fondaparinux 7.5 mg 04/11/21 16:00 04/11/21 16:08 Fondaparinux 7.5 Mg/0.6 Ml Inj SUB-Q 7.5 mg DAILY ALTAGRACIA Administration Morphine Sulfate 2 mg 04/07/21 23:45 04/09/21 10:13 Morphine 2 Mg/1 Ml Inj IV 2 mg Q4H PRN Administration Pain, Moderate (4-6) Ondansetron HCl 4 mg 04/07/21 23:45 Ondansetron 4 Mg/2 Ml Inj IV Q8H PRN Nausea And Vomiting Oxycodone/Acetaminophen 1 tab 04/09/21 13:30 04/11/21 01:51 Oxycodone /Acetaminophen 5-325mg Tab PO 1 tab Q6H PRN Administration Pain, Moderate (4-6) Sodium Chloride 10 ml 04/08/21 10:00 04/11/21 22:45 Sodium Chloride 0.9% 10 Ml Flush Syringe IV 10 ml BID ALTAGRACIA Administration Sodium Chloride 10 ml 04/07/21 23:45 04/08/21 20:30 Sodium Chloride 0.9% 10 Ml Flush Syringe IV 10 ml PRN PRN Administration LINE FLUSH
[2021-04-12] MEDS: FAMOTIDINE 20 MG TAB PO SCH (10:45)
[2021-04-12] MEDS: FONDAPARINUX 2.5 MG/0.5 ML INJ SUB-Q SCH (10:46)
[2021-04-12] MEDS: FONDAPARINUX 7.5 MG/0.6 ML INJ SUB-Q SCH (10:46)
--- NOTE | 2021-04-12 10:48 | Progress Note ---
Assessment and Plan Acute Pulmonary embolism Pulmonary infarct Deep vein thrombosis (DVT) of iliac vein of right lower extremity Morbid Obesity - follow US chest - continue full anticoagulation for VTE - hematology work-up ongoing - continue care as below otherwise; - continue to wean supplemental oxygen to keep O2 sats > 90% - continue Bronchodilators (TARUN & LABA) with pulm hygiene per RT - continue systemic steroids with slow taper - continue inhaled corticosteroids - avoid nephrotoxins, renally dose all medications - continue mobility protocols to prevent pressure ulcers - PT/OT as tolerated - Wound care per RN/WCT - continue accuchecks with glycemic control per SSI for target blood glucose < 180 mg/dL - tobacco abstinence strongly counseled at the bedside - home oxygen evaluation at discharge - prn analgesia per pain score - GI & VTE prophylaxis - Flu & pneumovax per protocol - Pulmonary out patient follow up for PFTs and optimization of respiratory status - continue other care per attending / other consultants ... re-evaluate in am & prn Subjective Date of service: 04/12/21 Principal diagnosis: Acute Pulmonary embolism; Pulmonary infarct; DVT; Morbid Obesity Interval history: Patient is seen today for: Acute Pulmonary embolism; Pulmonary infarct; DVT; Morbid Obesity Seen and examined at bedside; 24hour events reviewed; nursing and respiratory care staff consulted; no adverse overnight events reported to me; resting in bed;US chest without significant fluid for safe thoracentesis; Objective Vital Signs - 12hr 04/11/21 04/12/21 23:20 04:00 Temperature 98.3 F 98.7 F Pulse Rate 95 H 83 Respiratory 18 18 Rate Blood Pressure 104/63 104/54 O2 Sat by Pulse 97 100 Oximetry Constitutional: no acute distress, alert Eyes: non-icteric ENT: oropharynx moist Neck: supple, no lymphadenopathy, no JVD Effort: mildly labored Ascultation: Right: diminished breath sounds (bases and mid-lung zones), egophony, Bilateral: rales Percussion: Bilateral: not dull Cardiovascular: regular rate and rhythm Gastrointestinal: normoactive bowel sounds, soft, non-tender, non-distended (protuberant) Integumentary: normal Extremities: no cyanosis, no edema, pulses normal, no ischemia or petechiae Neurologic: normal mental status, non-focal exam, pupils equal and round, motor strength normal and Psychiatric: mood appropriate, affect normal CBC and BMP: 04/11/21 06:39 04/09/21 13:59 ABG, PT/INR, D-dimer: PT/INR, D-dimer PT 16.8 Sec. (12.2-14.9) H 04/09/21 13:59 INR 1.31 (0.87-1.13) H 04/09/21 13:59 D-Dimer > 01087 ng/mlDDU (0-234) H 04/09/21 05:13 Abnormal lab findings: Abnormal Labs 04/07/21 04/07/21 04/07/21 17:50 17:50 17:50 WBC RBC 3.61 L Hgb Hct MCHC RDW 15.5 H Plt Count Lymph % (Auto) 7.6 L [place] % (Auto) 8.4 H Lymph # (Auto) 0.7 L Seg Neutrophils % 83.1 H Seg Neutrophils # 7.8 H PT 15.6 H INR 1.19 H APTT D-Dimer Heparin Anti-Xa Level Sodium Chloride 97.3 L BUN Glucose 116 H Iron TIBC Ferritin AST 108 H ALT 150 H Alkaline Phosphatase 240 H Lactate Dehydrogenase Total Protein 8.8 H 04/07/21 04/07/21 04/08/21 23:27 23:27 06:40 WBC RBC 3.27 L Hgb 9.3 L 9.6 L Hct 27.8 L 28.1 L MCHC RDW 15.7 H Plt Count Lymph % (Auto) 8.8 L [place] % (Auto) Lymph # (Auto) 0.9 L Seg Neutrophils % 83.5 H Seg Neutrophils # 8.7 H PT 16.1 H INR 1.24 H APTT D-Dimer Heparin Anti-Xa Level Sodium Chloride BUN Glucose Iron TIBC Ferritin AST ALT Alkaline Phosphatase Lactate Dehydrogenase Total Protein 04/08/21 04/09/21 04/09/21 06:40 05:13 05:13 WBC 11.3 H RBC 2.98 L Hgb 9.0 L Hct 26.0 L MCHC 35 H RDW 15.3 H Plt Count Lymph % (Auto) 8.9 L [place] % (Auto) Lymph # (Auto) 1.0 L Seg Neutrophils % 83.1 H Seg Neutrophils # 9.4 H PT INR APTT D-Dimer > 47001 H Heparin Anti-Xa Level 0.86 H Sodium Chloride BUN 6 L Glucose 132 H Iron TIBC Ferritin AST ALT Alkaline Phosphatase Lactate Dehydrogenase Total Protein 04/09/21 04/09/21 04/09/21 05:13 05:13 05:13 WBC RBC Hgb Hct MCHC RDW Plt Count Lymph % (Auto) [place] % (Auto) Lymph # (Auto) Seg Neutrophils % Seg Neutrophils # PT INR APTT D-Dimer Heparin Anti-Xa Level Sodium 136 L Chloride BUN 5 L Glucose 128 H Iron 18 L TIBC 173 L Ferritin 1250.0 H AST ALT Alkaline Phosphatase Lactate Dehydrogenase Total Protein 04/09/21 04/09/21 04/09/21 13:59 13:59 13:59 WBC RBC 3.24 L Hgb 9.2 L Hct 28.1 L MCHC RDW 16.0 H Plt Count Lymph % (Auto) [place] % (Auto) Lymph # (Auto) Seg Neutrophils % Seg Neutrophils # PT 16.8 H INR 1.31 H APTT 99.2 H* D-Dimer Heparin Anti-Xa Level Sodium Chloride BUN Glucose Iron TIBC Ferritin AST ALT Alkaline Phosphatase Lactate Dehydrogenase 330 H Total Protein 04/11/21 06:39 WBC 15.5 H RBC 3.48 L Hgb 9.6 L Hct 30.0 L MCHC RDW 16.0 H Plt Count 511 H Lymph % (Auto) [place] % (Auto) Lymph # (Auto) Seg Neutrophils % Seg Neutrophils # PT INR APTT D-Dimer Heparin Anti-Xa Level Sodium Chloride BUN Glucose Iron TIBC Ferritin AST ALT Alkaline Phosphatase Lactate Dehydrogenase Total Protein Allied health notes reviewed: nursing
--- NOTE | 2021-04-12 11:41 | Discharge Summary ---
Providers - Providers Date of Admission: 04/07/21 23:16 Date of discharge: 04/12/21 Attending physician: LUIS MANUEL RILEY MD 04/08/21 14:41 Consult to Physician [CONS] Routine Comment: Consulting Provider: MICHELLE CEE Physician Instructions: Reason For Exam: PE with h/o GI bleed 04/08/21 14:42 Consult to Physician [CONS] Routine Comment: Consulting Provider: JOSE ANAYA Physician Instructions: Reason For Exam: Recurrent PE with history of GI bleed 04/11/21 00:21 Physical Therapy Evaluation and Treat [CONS] Routine Comment: Reason For Exam: Debility 04/11/21 17:13 Consult to Case Management [CONS] Routine Services Needed at Discharge: Home O2 Notified:: pillowcase folderprocurement manager 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 Albuterol via nebulizer every 4 hours as needed. s/p Heparin drip as per protocol. consulted heamatology : Started on Eliquis -- Pulmonary infarct Oxygen via nasal catheter per minute DuoNeb by nebulizer every 4 hours. Albuterol via nebulizer every 4 hours as needed. consulted pulmonary Hematology recommended pulse dose of steroid -- h/o Cervical cancer Outpatient follow-up with oncology --Normocytic anemia, likely due to chronic disease Continue to monitor H&H -- h/o Deep vein thrombosis (DVT) of iliac vein of right lower extremity patient was taking eliquis at home but recently discontinued for hemoptysis -- Arthritis Stable. Tylenol 650 mg p.o. every 6 hours as needed. Morphine 2 mg IV every 4 hours as needed --Morbid obesity, diet and exercise recommendation when clinically more stable -- Full code status --Heparin drip for DVT prophylaxis. Pepcid 20 mg p.o. twice daily for GI prophylaxis. Daily clinical course: 04/08/21: cont heparin drip, Pt with h/o GI bleed will consult heam and pulmonary for AC recommendation 04/09/21; patient continued to complains of significant chest discomfort, appre [facility] hematology recommendation. Patient has been initiated on steroid. Will change heparin drip to Eliquis. Monitor H&H. If patient clinically stable and pain improves possible discharge tomorrow. 04/10/21: Patient received iron transfusion today, continue to complains of chest tightness and chest pain. Remains on supplemental O2. Follow H&H, consult case management for home O2 arrangement. Follow 2D echo result. PT eval 04/11/21: Patient would like to go home however still requiring oxygen and experiencing some chest discomfort. Working to optimize pulmonary status. Will work with CM for home O2. 04/12/21: Does not qualify for home O2. O2 sats at rest 99% on RA. Will discharge on home dose of Eliquis 5mg po bid per heme/onc recs. Disposition: DC-01 TO HOME OR SELFCARE Final Discharge Diagnosis (Prints w/discharge instructions): Pulmonary Embolism - Discharge Diagnoses (1) Pulmonary embolism Status: Acute (2) Pulmonary infarct Status: Acute (3) Cervical cancer Status: Acute (4) Deep vein thrombosis (DVT) of iliac vein of right lower extremity Status: Acute Core Measure Documentation - Palliative Care Palliative Care/ Comfort Measures: Not Applicable - Core Measures Any of the following diagnoses?: none Exam - Physical Exam Narrative exam: Physical Exam: GENERAL APPEARANCE: Well developed, well nourished, alert and cooperative, and appears to be in no acute distress. HEAD: normocephalic. EYES: PERRL, EOMI. Vision is grossly intact. EARS: No gross deformities NOSE: No nasal discharge. nasal cannula in place. THROAT: Oral cavity and pharynx normal. No inflammation, swelling, exudate, or lesions. Teeth and gingiva in good general condition. NECK: Neck supple, non-tender without lymphadenopathy, masses or thyromegaly. CARDIAC: Normal S1 and S2. No S3, S4 or murmurs. Rhythm is regular. There is no peripheral edema, cyanosis or pallor. Extremities are warm and well perfused. Capillary refill is less than 2 seconds. No carotid bruits. LUNGS: Clear to auscultation and percussion without rales, rhonchi, wheezing or diminished breath sounds. ABDOMEN: Positive bowel sounds. Soft, nondistended, nontender. No guarding or rebound. No masses. MUSKULOSKELETAL: Adequately aligned spine. ROM intact spine and extremities. No joint erythema or tenderness. Normal muscular development. Normal gait. BACK: Examination of the spine reveals normal gait and posture EXTREMITIES: No significant deformity or joint abnormality. No edema. Peripheral pulses intact. No varicosities. NEUROLOGICAL: CN II-XII intact. Strength and sensation symmetric and intact throughout. Reflexes 2+ throughout. PSYCHIATRIC: The mental examination revealed the patient was oriented to person, place, and time. - Constitutional Vitals: Temp Pulse Resp BP Pulse Ox 98.7 F 110 H 20 104/54 96 04/12/21 04:00 04/12/21 08:14 04/12/21 08:14 04/12/21 04:00 04/12/21 08:14 Plan Activity: no restrictions Weight Bearing Status: Weight Bear as Tolerated Diet: regular Plan of Treatment: Any [place]. You are admitted for acute hypoxic respiratory failure secondary to pulmonary embolism. I suspect this was due to your history of cervical cancer and possible recurrence. We consulted hematology and pulmonology and subsequently treated you with IV anticoagulation and IV steroids. You improved. We evaluated you for supplemental home oxygen however you were breathing comfortably on room air and your oxygen saturations were 100% at rest and 99% at exertion. You will be discharged home with prescription for albuterol inhaler as needed for shortness of breath, budesonide inhaler, Eliquis 5 mg p.o. twice daily (your previous home dose) which you will continue per the direction of your outpatient heme-onc doctor. Please follow-up with your primary care doctor and heme-onc doctor in 1 week. We also recommend you follow-up with a water chaser (lung doctor). Follow up with: PRIMARY CARE, [Primary Care Provider] - 7 Days Prescriptions: Apixaban [Eliquis] 5 mg PO BID 30 Days #60 tablet ALBUTEROL NEB's [Proventil 0.083% NEBS] 2.5 mg IH QID PRN 30 Days #1 inh PRN Reason: Shortness Of Breath Beclomethasone Dipropionate [Qvar Redihaler] 10.6 gm IH BID 30 Days #1 hfa.aeroba
[2021-04-12 13:36] VITALS: BP 129/67
[2021-04-12 19:40] LABS: Cardiolipin Ab IgA <2.0 APL-U/mL (<20.0); Cardiolipin Ab IgG <2.0 GPL-U/mL (<20.0); Cardiolipin Ab IgM <2.0 MPL-U/mL (<20.0)
[2021-04-17 07:48] LABS: Hemoglobin A2 Prime SEE SCANNED RESULT; Hemoglobin Barts SEE SCANNED RESULT; Hemoglobin E SEE SCANNED RESULT; Hemoglobin G SEE SCANNED RESULT; Hemoglobin Lepore SEE SCANNED RESULT; Hemoglobin O-Arab SEE SCANNED RESULT; IEF Confirm SEE SCANNED RESULT; Interpretation SEE SCANNED RESULT; Sickle Solubility Test SEE SCANNED RESULT
== END 2021-04-12 14:18 | disposition home or self-care (01) | DRG 175 ==
LOC: ED 16:50 → 4A 23:16
PROVIDERS: ADMIT Hospitalist; ATTEND Internal Medicine
DX: I26.99 Other pulmonary embolism without acute cor pulmonale (principal); J96.01 Acute respiratory failure with hypoxia; M19.90 Unspecified osteoarthritis, unspecified site; E66.01 Morbid (severe) obesity due to excess calories; D63.8 Anemia in other chronic diseases classified elsewhere; Z68.41 Body mass index [BMI] 40.0-44.9, adult; Z85.41 Personal history of malignant neoplasm of cervix uteri; Z71.3 Dietary counseling and surveillance; Z86.718 Personal history of other venous thrombosis and embolism; Z79.01 Long term (current) use of anticoagulants
CPT/HCPCS: 36415; 71045; 71275; 76604; 80048; 80053; 82140; 82565; 82728; 83550; 83615; 83880; 84484; 85014; 85018; 85025; 85027; 85045; 85049; 85379; 85520; 85610; 85730; 86147; 87040; 93005; 93306; 94640; 96365; G0378; J0456; J0696; J1644; J1652; J1940; J2270; J2916; J2930; J7030; Q9967

== ENCOUNTER 2022-04-06 11:00 | Outpatient (CLI) | payer MEDICAID | END 2022-04-06 11:01 | disposition home or self-care (01) | LOC: SLR 11:00 | PROVIDERS: ATTEND Internal Medicine Critical Care Medicine | DX: G47.30 Sleep apnea, unspecified (principal) | CPT/HCPCS: G0399 ==